=== PATIENT | male | born 1985 | race African-American/Black ===

== ENCOUNTER 2022-12-06 11:12 | Emergency (ER) | payer MEDICAID, SELFPAY ==
--- NOTE | 2022-12-06 11:39 | ED_ITS ---
HPI - Back Pain/Injury General Chief Complaint: Back Pain/Injury Stated Complaint: lumbar back pain x 1 day Time Seen by Provider: 12/06/22 11:25 History of Present Illness HPI Narrative: This is a 37-year-old male who denies past medical history, presenting to the emergency department complaining of back pain. 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 The pain did not radiate and was not associated with any weakness or numbness. He states the pain waxes and wanes, is aggravated by movement and alleviated with rest and heating pads. He has no other complaints today. Related Data Allergies Allergy/AdvReac Type Severity Reaction Status Date / Time No Known Allergies Allergy Verified 12/06/22 11:39 Review of Systems Review of Systems: CONSTITUTIONAL: Denies fever, chills, or sweats. ENT: Denies rhinorrhea, congestion, sore throat, or otalgia. CARDIOVASCULAR: Denies chest pain, palpitations, or edema. RESPIRATORY: Denies cough or dyspnea. GASTROINTESTINAL: Denies abdominal pain, nausea, vomiting, or diarrhea. GENITOURINARY: Denies dysuria or hematuria. SKIN: Denies rash or itching. MUSCULOSKELETAL: Back pain denies joint pain, or myalgia. NEUROLOGIC: Denies headache, numbness, dizziness, or weakness. PSYCHIATRIC: Denies anxiety or depression. Exam Narrative: GENERAL: Well-appearing, well-nourished, and in no acute distress. HEAD: Normocephalic, atraumatic. EYES: PERRLA and EOMI. NECK: Supple. No adenopathy or masses. No carotid bruits or JVD CHEST: Clear to auscultation. No respiratory distress. No wheezes rales or rhonchi HEART: Regular rate and rhythm. No murmur heard. Normal peripheral pulses. ABDOMEN: Soft, nontender, nondistended, normal active bowel sounds. BACK: No midline spine tenderness to palpation, mild spasm noted in the paraspinal musculature at approximately T11-T12 EXTREMITIES: Normal range of motion. No edema. SKIN: Warm, dry, no rash. NEURO: No focal deficits. Alert and oriented x3. PSYCH: Normal mood and affect. Course Course Emergency Course: 11:40 - Exam is not concerning for fracture or mass. Will treat with NSAIDs. Discussed return emergent cautions including signs/symptoms of cauda equina and fracture. Th patient voiced understanding and is comfortable with the plan. All questions answered to his satisfaction. MDM - Back Pain/Injury MDM Narrative Medical decision making narrative: Plan: Pain control, primary care follow-up Differential Diagnosis Differential diagnosis: Likely thoracic back pain and other (Strain of thoracic region, other) Discharge Plan Discharge Clinical Impression: Strain of thoracic spine, Back pain Patient Disposition: Home, Self-Care Condition: Stable Instructions: Antibiotic Form, Acute Low Back Pain (ED), Thoracic Back Strain (ED) Additional Instructions: You were seen in the emergency department. Your exam is consistent with a muscle strain. If you develop weakness/numbness in the legs, loss of sensation in the groin, loss of bowel/bladder control, or have other emergent concerns for life, limb, or eyesight, return to the emergency department. Patient Language: Faroese Follow-up/Referrals: Yamilet Schafer DO [Primary Care Provider] -
[2022-12-06] MEDS: ACETAMINOPHEN 500 MG TABLET 1000 MG PO (11:53)
== END 2022-12-06 12:26 | disposition home or self-care (01) ==
LOC: ANHED 11:43
PROVIDERS: Emergency Provider Preventive Medicine Aerospace Medicine; PCP Family Medicine
DX: S29.012A Strain of muscle and tendon of back wall of thorax, initial encounter (principal); X50.9XXA Other and unspecified overexertion or strenuous movements or postures, initial encounter
CPT/HCPCS: 99282; A9270

== ENCOUNTER → 2022-12-18 11:50 | Outpatient (CLI) | payer MEDICAID, SELFPAY ==
--- NOTE | ~2022-12-18 | XR_ITS ---
EXAMINATION: XR lumbar spine 2-3V DATE: 12/18/2022 12:05 INDICATION: Twisting injury. Low back pain. TECHNIQUE: 3 views of lumbar spine were obtained. COMPARISON: None. FINDINGS: There is 10 degrees dextroscoliosis of lumbar spine. Vertebral body heights and interverteb ral disc heights are normal. The facet joints are normal. IMPRESSION: 1. Lumbar dextroscoliosis. Reviewed, dictated and finalized at location A. [employer]PER[employer] IMPRESSION: 1. Lumbar dextroscoliosis.
== END ==
PROVIDERS: PCP Clinical Nurse Specialist; Visit Provider Clinical Nurse Specialist
DX: M54.50 Low back pain, unspecified (principal); M41.86 Other forms of scoliosis, lumbar region
CPT/HCPCS: 72100

== ENCOUNTER 2022-12-19 12:43 | Outpatient (CLI) | payer MEDICAID, SELFPAY ==
[2022-12-19 19:22] LABS: Basophils Percent Auto 0.5 % (0.2-1.2); Eosinophils Absolute Auto 0.2 K/mm3 (0-0.3); Eosinophils Percent Auto 2.2 % (0-4.4); Hematocrit 47.2 % (42.0-52.0); Hemoglobin 16.3 g/dL (14.0-18.0); Immature Granulocyte Absolute 0.04 K/mm3 (0.00-0.031); Immature Granulocyte Percent A 0.5 % (0-0.5); Lymphocytes Absolute Auto 2.74 K/mm3 (0.9-3.2); Lymphocytes Percent Auto 31.6 % (18.3-44.2); Mean Corpuscular HGB Conc 34.5 g/dl (32-36); Mean Corpuscular Hemoglobin 30.8 pg (26-34); Mean Corpuscular Volume 89.2 fl (80-100); Monocytes Percent Auto 11.1 % (2.6-8.5); Neutrophils Absolute Auto 4.7 K/mm3 (1.3-6.7); Neutrophils Percent Auto 54.1 % (45.5-73.1); Platelet Count Result 225 k/mm3 (150-375); Red Blood Count 5.29 M/mm3 (4.6-6.20); Red Cell Distribution Width 11.2 % (11.5-14.5); White Blood Count 8.7 K/mm3 (4.5-10.0)
[2022-12-19 20:00] LABS: Alanine Aminotransferase 63 U/L (6-50); Albumin Level 4.7 g/dL (3.5-5.1); Alkaline Phosphatase 96 U/L (38-126); Anion Gap 6 mmol/L (8-16); Aspartate Amino Transferase 54 U/L (17-59); Bilirubin,Total 1.1 mg/dL (0.2-1.3); Blood Urea Nitrogen 12 mg/dL (9-20); Calcium 9.5 mg/dL (8.4-10.2); Carbon Dioxide 31 mmol/L (22-30); Chloride 98 mmol/L (98-107); Cholesterol 196 mg/dL (0-200); Estimated Glomerular Filt Rate > 60; Glucose 114 mg/dL (65-110); HDL Direct 34 mg/dL; Sodium 135 mmol/L (137-145); Triglycerides 264 mg/dL (<150)
[2022-12-19 20:10] LABS: LDL Cholesterol Direct 95 mg/dL
[2022-12-20 09:06] LABS: Hemoglobin A1C 5.7 % (<5.7)
== END 2022-12-19 12:44 | disposition home or self-care (01) ==
LOC: ANHGOSHLAB 12:44
PROVIDERS: PCP Clinical Nurse Specialist; Visit Provider Clinical Nurse Specialist
DX: Z13.228 Encounter for screening for other metabolic disorders (principal); Z13.220 Encounter for screening for lipoid disorders; F41.9 Anxiety disorder, unspecified; R73.9 Hyperglycemia, unspecified
CPT/HCPCS: 36415; 80053; 80061; 83036; 84443; 85025

== ENCOUNTER 2023-02-19 14:10 | Outpatient (CLI) | payer OTHER, SELFPAY ==
--- NOTE | ~2023-02-19 | US_ITS ---
EXAMINATION: US soft tissue head and neck DATE: 02/19/2023 14:51 INDICATION: Subcutaneous masses of left cheek. TECHNIQUE: Multiple grayscale and Doppler ultrasound images of the face were obtained. COMPARISON: None FINDINGS: In the left face, there is a 4.1 x 3.2 x 1.4 cm hypoechoic subcutaneous mass that may be in the parotid gland or superficial to the parotid gland. In the left lower face, there is a 2.7 x 1.3 x 2.2 cm hypoechoic subcutaneous mass. In the right lower face, there are 1.2 cm and 0.7 cm and 0.7 c m mixed hypoechoic and hyperechoic subcutaneous masses. IMPRESSION: 1. Multiple masses in the face, most likely benign masses such as sebaceous cysts or peripheral nerve sheath tumors. The differential diagnosis for the mass in the area of the left parotid gland also in cludes benign mixed tumor, Warthin tumor, and less likely primary salivary gland malignancy. Consider neck CT with contrast. Reviewed, dictated and finalized at location A. IMPRESSION: 1. Multiple masses in the face, most likely benign masses such as sebaceous cys ts or peripheral nerve sheath tumors. The differential diagnosis for the mass i n the area of the left parotid gland also includes benign mixed tumor, Warthin tumor, and less likely primary salivary gland malignancy. Consider neck CT with contrast.
== END 2023-02-19 14:11 | disposition home or self-care (01) ==
LOC: ANHIMG 14:14
PROVIDERS: PCP Internal Medicine; Visit Provider Plastic Surgery
DX: R22.0 Localized swelling, mass and lump, head (principal)
CPT/HCPCS: 76536

== ENCOUNTER 2023-02-20 12:30 | Outpatient (RCR) | payer OTHER, SELFPAY ==
--- NOTE | 2022-12-31 17:05 | PTOPEVAL1 ---
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 He states later that night he has such a sharp pain that brought him to his knees. He has not felt the sharp pain since then. Pt states he has been taking extra strength Tylenol and using a heating pad to treat his back pain. He states he has not been sleeping well and tossing and turning is starting to aggravate his neck as well. He states he is limited to about 2-3 hours of standing, for work he needs to stand 5+ hours. Reported Pain Level Pain Score 5: Self Report Assessment PT Clinical Summary Christ Alvarado presents to therapy today for his initial evaluation with a diagnosis of low back pain. Today he demonstrates decreased LE range of motion and strength, both limited by pain . He has decreased active motions in all directions, pain limiting further mobility. He reports muscle tenderness and increased tissue density along his L quadratus lumborum and L lumbar paraspinals. Skilled physical therapy services are indicated for pain management, to increase soft tissue extensibility, to improve LE strength, to improve functional mobility, and to progress towards a return to baseline function. Plan of Care Interventions Electrical Stimulation,Gait Training,Hot Pack/Cold Pack,Manual Therapy,Neuro Re-education,Patient/ Caregiver Educati,Therapeutic Activities, Therapeutic Exercise PT Services Indicated Yes Treatment Frequency and 2x/wk for 3 wks Duration These treatments will address the objective and functional deficits as defined above. The patient will be advanced safely and appropriately in order for the patient to progress towards his/her prior level of function. Additional exercises will be introduced and as well as a comprehensive home exercise program upon discharge, if needed, ?to ensure carryover of functional gains achieved in the clinic. This treatment plan has been reviewed and agreement upon by the patient.
--- NOTE | 2023-01-09 11:23 | PCPTNOTE ---
Pt canelled appt today due a sick child at home.
--- NOTE | 2023-01-13 11:20 | PCPTNOTE ---
pt rescheduled visit due to work conflict and will been seen on Friday afternoon this week.
--- NOTE | 2023-01-21 14:01 | PTOPPROG ---
Assessment and note entered by Gregorio Nicholson, PT, DPT Evaluation Information Assessment Status Progress Diagnosis low back pain - muscle strain Onset 12/05/22 Subjective Information Pt states his back was doing better for a few weeks. He states about a week ago he woke up and his back pain was worse. Not worse than the initial injury but worse than it was. He states he can get through work, it is just painful. He states the pain feels centralized. Assessment PT Clinical Summary Christ presents to therapy today for his progress report following 6 visits of skilled therapy to treat him low back pain. He initially was progressing well with his pain until the past week when he did something to re-exasperate his pain. Continuation of skilled therapy services are indicated to increase soft tissue mobility, decrease pain, improve function, to improve body mechanics and to return to baseline mobility. Plan of Care Interventions Electrical Stimulation,Gait Training,Hot Pack/Cold Pack,Manual Therapy,Neuro Re-education,Patient/ Caregiver Educati,Therapeutic Activities, Therapeutic Exercise PT Services Indicated Yes Treatment Frequency and 2x/wk for 4 wks Duration These treatments will address the objective and functional deficits as defined above. The patient will be advanced safely and appropriately in order for the patient to progress towards his/her prior level of function. Additional exercises will be introduced and as well as a comprehensive home exercise program upon discharge, if needed, ?to ensure carryover of functional gains achieved in the clinic. This treatment plan has been reviewed and agreement upon by the patient.
--- NOTE | 2023-02-20 13:06 | PTOPDC ---
Assessment and note entered by Gregorio Nicholson, PT, DPT Evaluation Information Assessment Status Discharge Diagnosis low back pain - muscle strain Onset 12/05/22 Subjective Information Pt states in the last couple weeks he has not had any back pain. Pt reports 90% improvement in his overall symptoms. Pt reports good compliance with his HEP. He states he has become much more aware of his posture and body mechanics since starting therapy. He states he has not taken any pain medication in the last couple of days either. Reported Pain Level Pain Score 0: Self Report Assessment PT Clinical Summary Christ presents to therapy today for his progress report following 15 visits of skilled therapy to treat his low back pain. Today he reports no pain at rest, and demonstrates no pain with active lumbar motion or passive LE motion. He demonstrates a good understanding of squat mechanics. He has met all of his therapy goals at this time and no longer requires skilled therapy services. He will be discharged now to continue his HEP. Plan of Care Interventions Electrical Stimulation,Gait Training,Hot Pack/Cold Pack,Manual Therapy,Neuro Re-education,Patient/ Caregiver Educati,Therapeutic Activities, Therapeutic Exercise PT Services Indicated No Treatment Frequency and to be discharged Duration
== END 2023-02-20 13:44 | disposition home or self-care (01) ==
LOC: ANHGOSHPT 12:30
PROVIDERS: PCP Clinical Nurse Specialist; Visit Provider Clinical Nurse Specialist
DX: L05.91 Pilonidal cyst without abscess (principal)
CPT/HCPCS: 97014; 97110; 97112; 97140; 97161; 97530; G0283

== ENCOUNTER 2023-03-04 08:41 | Outpatient (CLI) | payer OTHER, SELFPAY ==
--- NOTE | ~2023-03-04 | CT_ITS ---
EXAMINATION: CT soft tissue neck w con DATE: 03/04/2023 09:09 INDICATION: Left neck mass. TECHNIQUE: Computed tomography (CT) of the neck was performed with 75 mL Omnipaque-350 intravenous co ntrast. Automated exposure control and iterative reconstruction technique were employed. The dose-nicole gth product was 651.97 mGy-cm. COMPARISON: Ultrasound 02/19/2023 FINDINGS: There is mild emphysema. There are no pathologically enlarged lymph nodes. There are 2.4 cm and 2.6 cm subcutaneous cystic masses superficial to the left parotid gland. There is an 8 mm subcut aneous mass in left cheek. There is a 9 mm subcutaneous cystic mass superficial to right parotid glan d. There is a 7 mm subcutaneous cystic mass superficial to left mandible. There is a 12 mm subcutaneo us cystic mass in left lutheran. There is a 7 mm subcutaneous cystic mass superficial to right mandible . The teeth demonstrate multiple carious lesions and multiple periapical lucencies. IMPRESSION: 1. Seven subcutaneous masses in the face, most likely sebaceous cysts. 2. Extensive dental disease. 3. Mild emphysema. Reviewed, dictated and finalized at location A.
== END 2023-03-04 08:42 | disposition home or self-care (01) ==
PROVIDERS: PCP Clinical Nurse Specialist; Visit Provider Plastic Surgery
DX: R22.0 Localized swelling, mass and lump, head (principal); R22.1 Localized swelling, mass and lump, neck; J43.9 Emphysema, unspecified; K08.9 Disorder of teeth and supporting structures, unspecified
CPT/HCPCS: 70491; Q9967

== ENCOUNTER 2023-04-09 00:16 | Day surgery (SDC) | payer OTHER, SELFPAY ==
[2023-04-04 08:27] VITALS: BMI 35.2
--- NOTE | 2023-04-04 08:30 | PC.NURSE ---
Report to the Outpatient Waiting Room, entrance under the green pavilion located off [facility], at time 0600 on date 04/09/23. Planned Procedure Time: 0730. Time changes happen often and if your time is changed the preop area will call you the afternoon before. - You and your visitor will be asked to self-screen and do not enter if you have any COVID symptoms. - A mask is optional within the hospital at this time. Patients may have clear liquids (water, carbonated beverages, clear teas, apple juice) until 3 hours prior to surgery with a maximum of 20 ounces. - No food from midnight until time of surgery Take the following medications with a SIP of water the morning of surgery: N/A DO NOT STOP ANY OF YOUR OTHER PRESCRIPTION MEDICATIONS PRIOR TO SURGERY ?EXCEPT THE FOLLOWING Medications to discontinue per physician: N/A Date to take last dose: N/A Please no make-up, nail irish, hairspray, perfume, deodorant, or body powder the day of surgery. No jewelry (including any body piercings) or valuables the day of surgery, leave them at home. Please take a shower or bath the night before, or the morning of, surgery with an antibacterial soap. Wear comfortable, loose fitting clothing. - Jewelry must be removed prior to entering the operating room. Rings and piercings that are not removed may be cut off. - The hospital will not accept responsibility for valuables. - Please leave all valuables, including medications, at home the day of surgery. If you are going home after surgery, a licensed transport driver must drive you home. - NO public transportation without another adult if you receive anesthesia. - We recommend that an adult stay with you for 24 hours following discharge. - We also recommend that you do not drive, make important decision, drink alcoholic beverages, or take any drugs that were not prescribed by your health care provider for at least 24 hours after your discharge time. Follow any additional instructions given to you from your surgeon. If you or anyone in your household have experienced Covid symptoms in the past week, please notify your surgeon or the nurse liaison at the phone number below for possible testing. Telephone instructions given to PT - MANUELA ROBERT and asked if any additional questions and then verbalized understanding. Patient advised to call surgeon office or pre surgery nurse liaison [phone] if any additional questions.
--- NOTE | 2023-04-08 12:05 | P.PNAN_ITS ---
Anes - Initial Pre Proc Eval Procedure: Operation Date: 04/09/23 09:30 Proposed Procedures p Excision Subcutaneous Masses Times Two Left Cheek, Excision Subcutaneous Mass Left Adventism - Dominic De Anda MD Date/Time: 04/08/23 12:05 Surgeon: Dominic De Anda MD Pre Op Diagnosis: SubQ mass x2 Lt Cheek, SubQ Mass Lt Adventism Patient Data Age: 37 Gender: M Height: 1.78 m Weight: 111.15 kg Allergies Allergy/AdvReac Type Severity Reaction Status Date / Time No Known Allergies Allergy Verified 04/04/23 08:26 Home Medications Medication Instructions Recorded Confirmed Type No Home Medications 04/04/23 04/09/23 History Patient hx anesthesia problems: none Family hx anesthesia problems: none Results Review: All pre-operative results and documents have been reviewed as part of the pre- operative evaluation. [facility] Past Medical History Medical History Hospital discharge follow-up Surgical History Surgical History History of surgical removal of pilonidal cyst (~2014) History of surgical removal of pilonidal cyst (~2020) Family History Family History Father Diabetes mellitus Hypertension Mother Hypertension Social History Social History (Updated 01/29/23 @ 13:56 by Zina Dumas CMA) Social History: Caffeine-soda 2 cups daily Years smoked: 18 Smoking status: Current every day smoker Tobacco type: cigarettes Alcohol intake: current Drinks per week: 16 Alcohol use details: 3-4 BEERS EVERY OTHER DAY Substance use: never Substance use type: does not use Lack of Transportation: No Lack of Food: Never True Current Housing: I Have Housing Concerned About Future Housing: No Difficulty Paying Gas/Electric Bills: No Difficulty Paying for Meds: No Currently Unemployed: No Education: High School Diploma/GED Difficulty w/ Childcare or Family Care: No Living arrangements: with family Spiritual care concerns: No Anes - Eval Final PreProcedure Day of Procedure 04/08/23 12:05 Patient weight: obese Heart: regular rate and rhythm Lungs: clear to auscultation Airway: Mallampati scale class II Neurological: alert and oriented Last oral intake: >/= 8 hours ASA classification: III Emergent: no Anesthetic plan: proceed Anesthesia type and monitoring: general LMA and standard monitoring Results Review: All pre-operative results and documents have been reviewed as part of the pre- operative evaluation. Informed Consent: The patient's anesthetic plan and its attendant risks and benefits were discussed with the patient/family/POA. Questions were solicited and answers provided to the satisfaction of the patient/family/POA.
[2023-04-09] VITALS (7 sets, daily range): BP systolic 137–173; BP diastolic 90–106; PULSE 84–115; RESP 13–19; TEMP 36.6–36.7; O2SAT 18–100
--- NOTE | 2023-04-09 07:30 | WPDHPUPDATE1 ---
History and Physical Update Update Date/Time: 04/09/23 07:30 History and Physical has been reviewed, including an updated exam of the patient. There are NO changes in the patient's condition. Risks, benefits, and alternatives have been discussed and questions answered. Patient agrees to proceed with procedure.
--- NOTE | 2023-04-09 07:31 | WPDHPUPDATE1 ---
History and Physical Update Update Date/Time: 04/09/23 07:31 History and Physical has been reviewed, including an updated exam of the patient. There are NO changes in the patient's condition. Risks, benefits, and alternatives have been discussed and questions answered. Patient agrees to proceed with procedure.
[2023-04-09] MEDS: LACTATED RINGERS 1,000 ML 30 ML IV CONT (08:04)
[2023-04-09] MEDS: LIDO 1%/EPINEPHRINE 1:100,000 50 ML VIAL 8 ML INFILTRATE (10:09)
--- NOTE | 2023-04-09 11:38 | P.OP_ITS ---
Procedure Note - Detailed Date of Procedure 04/09/23 Pre-op Diagnosis SubQ mass x2 Lt Cheek, SubQ Mass Lt Hoahaoism Post-op Diagnosis Same Procedure Performed One point 5 cm excision of 1 cm sebaceous cyst left anterior mormonism with intermediate repair 1.5 cm. 2 cm excision 2 cm sebaceous cyst left anterior cheek with intermediate repair 2 cm. 2 cm excision of 3 cm sebaceous cyst left posterior cheek with intermediate repair 2 cm. Surgeon Dominic De Anda MD Anesthesia General Indications Prominent draining masses of the left face Findings Un-inflamed sebaceous cysts in each case Description of Procedure The 3 evident sites on was patient's face were marked his consent holding area. He was then taken to the operating room where he was placed supine operating table. This case was converted to general anesthesia from sedation with patient expressed sense of claustrophobia. The left face was prepped and draped usual fashion. A time-out was held confirmed. The 3 sites were identified and infiltrated locally with 1% lidocaine with epinephrine. The lesion on left mormonism was incised with an ellipse to parallel local skin lines. The cystic sac and contents were removed. No undermining was required. The skin wound was closed with intradermal 4-0 Vicryl approximating the wound margins. At the end of the case the each of these surgical sites was closed with Dermabond. The lesion on the cheek both posteriorly position was incised with an ellipse to parallel the jawline. The cystic sac and contents were removed entirely. The wound was closed with intradermal 4-0 Vicryl suture dermis to approximate the wound margins. Skin wound was again closed with Dermabond. The more anterior mass from left cheek was excised to the lips paralleling local skin lines. The cystic sac and contents were removed. The wound was closed with into dermal 4-0 Vicryl to approximate the wound margins. The skin glued. The patient tolerated the procedure well no additional dressings were applied the patient was discharged home with instructions in wound care follow-up a prescription for hydrocodone 5/325 3. Was sent to his pharmacy. Estimated Blood Loss 5 Drains No Packing No Pathology None sent Complications No immediate complications Condition Stable Disposition PACU
[2023-04-09] MEDS: fentaNYL CITRATE INJ (*CRX) 100 MCG/2 ML VIAL 25 MCG IV PUSH ×2 (11:41→11:58)
[2023-04-09] MEDS: oxyCODONE HCL (*CRX) 5 MG TAB IR PO (12:48)
== END 2023-04-09 13:26 | disposition home or self-care (01) ==
PROVIDERS: PCP Clinical Nurse Specialist; Visit Provider Plastic Surgery
PROC: (CPT 11441; principal; 2023-04-09 09:30)
DX: L72.3 Sebaceous cyst (principal)
CPT/HCPCS: 11441; 11442; 11443; 12053; A9270; J1100; J2250; J2405; J2704; J3010; J7120

== ENCOUNTER 2023-04-30 15:09 | Outpatient (CLI) | payer OTHER, SELFPAY ==
[2023-04-30 19:24] LABS: Basophils Percent Auto 0.5 % (0.2-1.2); Eosinophils Absolute Auto 0.1 K/mm3 (0-0.3); Hematocrit 42.1 % (42.0-52.0); Hemoglobin 14.7 g/dL (14.0-18.0); Immature Granulocyte Absolute 0.06 K/mm3 (0.00-0.031); Immature Granulocyte Percent A 0.7 % (0-0.5); Lymphocytes Absolute Auto 2.39 K/mm3 (0.9-3.2); Lymphocytes Percent Auto 29.5 % (18.3-44.2); Mean Corpuscular HGB Conc 34.9 g/dl (32-36); Mean Corpuscular Hemoglobin 30.5 pg (26-34); Mean Corpuscular Volume 87.3 fl (80-100); Mean Platelet Volume 11.8 fl (7.4-10.4); Monocytes Absolute Auto 0.5 K/mm3 (0.1-0.6); Monocytes Percent Auto 6.2 % (2.6-8.5); Neutrophils Percent Auto 62.1 % (45.5-73.1); Platelet Count Result 359 k/mm3 (150-375); Red Blood Count 4.82 M/mm3 (4.6-6.20); White Blood Count 8.1 K/mm3 (4.5-10.0)
[2023-05-01 01:13] LABS: Alanine Aminotransferase 20 U/L (6-50); Albumin Level 4.1 g/dL (3.5-5.1); Alkaline Phosphatase 142 U/L (38-126); Anion Gap 8 mmol/L (8-16); Aspartate Amino Transferase 22 U/L (17-59); Bilirubin,Total 0.8 mg/dL (0.2-1.3); Blood Urea Nitrogen 9 mg/dL (9-20); Calcium 9.4 mg/dL (8.4-10.2); Carbon Dioxide 27 mmol/L (22-30); Chloride 93 mmol/L (98-107); Estimated Glomerular Filt Rate > 60; Glucose 645 mg/dL (65-110); Potassium 4.2 mmol/L (3.4-5.0); Sodium 128 mmol/L (137-145)
[2023-05-01 10:07] LABS: Iron 75 ug/dL (49-181)
[2023-05-01 10:12] LABS: Percent Iron Saturation 23 % (20-50)
[2023-05-04 04:35] LABS: C-Peptide 1.23 ng/mL (0.80-3.85)
[2023-05-05 18:23] LABS: Glutamic acid decarboxylase AA <5 IU/mL (<5)
[2023-05-15 22:10] LABS: Islet Cell Antibody Screen NEGATIVE (NEGATIVE)
== END 2023-04-30 15:10 | disposition home or self-care (01) ==
LOC: ANHGOSHLAB 15:11
PROVIDERS: PCP Internal Medicine; Visit Provider Clinical Nurse Specialist
DX: E11.65 Type 2 diabetes mellitus with hyperglycemia (principal); R63.4 Abnormal weight loss; F41.9 Anxiety disorder, unspecified; R63.1 Polydipsia
CPT/HCPCS: 36415; 80053; 81256; 82728; 83036; 83540; 83550; 84443; 84681; 85025; 86341

== ENCOUNTER 2023-05-01 13:41 | Outpatient (NON) | payer OTHER, SELFPAY ==
[2023-05-01 17:08] LABS: Appearance Urine Clear (Clear); Bacteria Urine None Seen /hpf; Bilirubin Urine Negative (Negative); Blood Urine Negative (Negative); Color Urine Yellow (Yellow); Glucose Urine UA 3+ mg/dL (Negative); Ketones Urine 3+ mg/dL (Negative); Leukocyte Esterase Ur Negative LEU/UL (Negative); Nitrate Urine Negative (Negative); Non Pathogenic Casts 0-2; Protein Urine Trace mg/dL (Negative); RBC Urine 0-2 /hpf (0-2); Squamous Epithelial Cell Urine None seen /hpf (Few); Urobilinogen Urine 0.2 mg/dL (<2.0); WBC Urine 0-5 /hpf
[2023-05-01 17:09] LABS: Add Urine Microscopic? YES; Specific Grav Ur 1.044 (1.001-1.035)
[2023-05-02 12:27] LABS: Microalbumin Urine Random 44.4 mg/L (0-16.7)
[2023-05-02 12:40] LABS: Creatinine Urine 76.5 mg/dL
== END 2023-05-01 13:42 | disposition home or self-care (01) ==
LOC: ANHGOSHLAB 13:42
PROVIDERS: PCP Internal Medicine; Visit Provider Clinical Nurse Specialist
DX: E11.9 Type 2 diabetes mellitus without complications (principal)
CPT/HCPCS: 81001; 82043

== ENCOUNTER 2023-05-26 13:40 | Outpatient (CLI) | payer OTHER, SELFPAY ==
[2023-05-26 19:56] LABS: Anion Gap 8 mmol/L (8-16); Blood Urea Nitrogen 8 mg/dL (9-20); Calcium 9.2 mg/dL (8.4-10.2); Carbon Dioxide 29 mmol/L (22-30); Chloride 102 mmol/L (98-107); Estimated Glomerular Filt Rate > 60; Glucose 95 mg/dL (65-110); Potassium 3.7 mmol/L (3.4-5.0); Sodium 139 mmol/L (137-145)
== END 2023-05-26 13:41 | disposition home or self-care (01) ==
LOC: ANHGOSHLAB 13:41
PROVIDERS: PCP Internal Medicine; Visit Provider Clinical Nurse Specialist
DX: E87.1 Hypo-osmolality and hyponatremia (principal)
CPT/HCPCS: 36415; 80048

== ENCOUNTER 2023-07-01 09:30 | Outpatient (RCR) | payer OTHER, SELFPAY | END 2023-08-04 10:05 | disposition home or self-care (01) | LOC: ANHDMC 09:30 | PROVIDERS: PCP Internal Medicine; Visit Provider Clinical Nurse Specialist | DX: E11.9 Type 2 diabetes mellitus without complications (principal); Z71.89 Other specified counseling | CPT/HCPCS: G0108 ==

== ENCOUNTER 2024-05-15 22:56 | Observation (INO) | payer OTHER, SELFPAY ==
--- NOTE | ~2024-05-15 | US_ITS ---
EXAMINATION: US abdomen limited DATE: 05/17/2024 11:14 INDICATION: Hyperbilirubinemia. TECHNIQUE: Multiple grayscale and Doppler ultrasound images of the abdomen were obtained. COMPARISON: None FINDINGS: The visualized portions of the head and body of the pancreas are normal. The liver is maegan l without focal lesion. There is normal flow in main portal vein. The gallbladder is normal in size. No gallstones or gallbladder wall thickening. There is no sonographic Hoang's sign. The common duct is normal and measures 1 mm. Right kidney is normal. IMPRESSION: 1. Normal right upper quadrant ultrasound. Reviewed, dictated and finalized at location A.
--- NOTE | ~2024-05-15 | XR_ITS ---
EXAMINATION: XR chest 1V portable DATE: 05/16/2024 00:37 INDICATION: Cough TECHNIQUE: frontal view of the chest was obtained. COMPARISON: None FINDINGS: Subtle patchy groundglass opacity in the bilateral lower lungs. No pleural effusion or pneumothorax. The cardiomediastinal silhouette is normal. IMPRESSION: 1. Subtle patchy groundglass opacity in the bilateral lower lungs which could represent pneumonia or atelectasis. Reviewed, dictated and finalized at location A. IMPRESSION: 1. Subtle patchy groundglass opacity in the bilateral lower lungs which could r epresent pneumonia or atelectasis.
--- NOTE | 2024-05-15 23:02 | ECG_ITS ---
Test Date: 2024-05-15 23:33:46 Measurements Intervals Nunez Rate: 104 P: 51 ID: 125 QRS: 60 QRSD: 85 T: 40 QT: 320 QTc: 423 Interpretive Statements SINUS TACHYCARDIA OTHERWISE NORMAL ELECTROCARDIOGRAM No previous ECG available for comparison Electronically Signed On 05-16-2024 08:42:13 CDT by Hi Yen M.D.
--- NOTE | 2024-05-15 23:42 | ED.GENADULT ---
HPI - General Adult General Chief complaint: Recheck/Abnormal Lab/Rx <Donell Fritz PA-C - Last Filed: 05/16/24 02:01> Stated complaint: hyperglycemia, muscle weakness <Donell Fritz PA-C - Last Filed: 05/16/24 02:01> Time Seen by Provider: 05/15/24 23:32 <Donell Fritz PA-C - Last Filed: 05/16/24 02:01> Source: patient <BRAYAN Davies Last Filed: 05/16/24 02:01> Mode of arrival: ambulatory <BRAYAN Davies Last Filed: 05/16/24 02:01> Limitations: no limitations <Donell Fritz PA-C - Last Filed: 05/16/24 02:01> History of Present Illness HPI narrative: This is a 38-year-old male with PMH of diabetes type 2 who presents to the ED with chief complaint of general fatigue, weakness for the past 3 weeks. Patient reports that he has been taking Jardiance and right Cheney's this for his diabetes but has not been taking metformin for the past several months. Reports he started checking sugars over the past couple weeks and noticed that they have been as high as 400s. Endorses occasional cough but does use tobacco. Endorses polydipsia, polyuria. denies dysuria, hematuria, abdominal pain, nausea, vomiting, fevers, chills, numbness, weakness, headache, neck pain or back pain. <Donell Fritz PA-C - Last Filed: 05/16/24 02:01> Related Data Allergies/adverse reactions: Allergies Allergy/AdvReac Type Severity Reaction Status Date / Time No Known Allergies Allergy Verified 05/15/24 22:57 <Donell Fritz PA-C - Last Filed: 05/16/24 02:01> Review of Systems Review of Systems: All systems as dictated in HPI <Donell Fritz PA-C - Last Filed: 05/16/24 02:01> [facility] Past Medical History Medical History: Medical History Anxiety Eczema Encounter to establish care Epidermoid cyst of face Erectile dysfunction Excessive thirst Hospital discharge follow-up Hyperglycemia Hyponatremia New onset type 2 diabetes mellitus Screening for lipoid disorders Screening for metabolic disorder Unexplained weight loss <Donell Fritz PA-C - Last Filed: 05/16/24 02:01> Surgical History Surgical History: Surgical History History of surgical removal of pilonidal cyst (~2014) 04/09/2023 - 3 removed History of surgical removal of pilonidal cyst (~2020) <Donell Fritz PA-C - Last Filed: 05/16/24 02:01> Family History Family History: Family History Father Diabetes mellitus Hypertension Mother Hypertension <Donell Fritz PA-C - Last Filed: 05/16/24 02:01> Social History Social History: Social History Social History: Caffeine-soda 2 cups daily Smoking packs per day: 0.20 Smoking cigarettes per day: 4.0 Years smoked: 18 Smoking pack-years: 3.60 Smoking status: Current every day smoker Tobacco type: cigarettes Alcohol intake: former Alcohol use details: Quit 02/2023 Substance use: never Substance use type: does not use Lack of Transportation: No Lack of Food: Never True Current Housing: I Have Housing Concerned About Future Housing: No Difficulty Paying Gas/Electric Bills: No Difficulty Paying for Meds: No Currently Unemployed: No Education: High School Diploma/GED Difficulty w/ Childcare or Family Care: No Living arrangements: with family Spiritual care concerns: No <Donell Fritz PA-C - Last Filed: 05/16/24 02:01> Exam Narrative: GENERAL: Well-appearing, well-nourished, and in no acute distress. HEAD: Normocephalic, atraumatic. EYES: PERRLA and EOMI. ENT: Nares clear, no rhinorrhea or epistaxis. Mucous membranes moist. Oropharynx without tonsillar hypertrophy exudate or other lesions. NECK: Supple. No adenopathy or masses. CHEST: No respiratory distress. Clear to
[2024-05-15 23:55] VITALS: BP 140/100; PULSE 104; RESP 15; TEMP 37.2; O2SAT 99
[2024-05-16] VITALS (14 sets, daily range): BP systolic 110–137; BP diastolic 68–92; PULSE 74–96; RESP 14–16; TEMP 36.4–36.9; O2SAT 98–100; BMI 29.2
[2024-05-16] MEDS: SODIUM CHLORIDE 0.9% IV 1,000 ML 999 ML IV CONT ×3 (00:09→01:08)
[2024-05-16 00:19] LABS: Basophils Absolute Auto 0.1 K/mm3 (0.0-0.1); Basophils Percent Auto 0.4 % (0.2-1.2); Eosinophils Absolute Auto 0.1 K/mm3 (0-0.3); Eosinophils Percent Auto 0.7 % (0-4.4); Hematocrit 46.3 % (42.0-52.0); Hemoglobin 16.7 g/dL (14.0-18.0); Immature Granulocyte Percent A 2.9 % (0-0.5); Lymphocytes Percent Auto 26.4 % (18.3-44.2); Mean Corpuscular HGB Conc 36.1 g/dl (32-36); Mean Corpuscular Hemoglobin 31.3 pg (26-34); Mean Corpuscular Volume 86.9 fl (80-100); Mean Platelet Volume 11.8 fl (7.4-10.4); Monocytes Absolute Auto 0.9 K/mm3 (0.1-0.6); Monocytes Percent Auto 6.2 % (2.6-8.5); Neutrophils Absolute Auto 8.7 K/mm3 (1.3-6.7); Neutrophils Percent Auto 63.4 % (45.5-73.1); Platelet Count Result 396 k/mm3 (150-375); Red Blood Count 5.33 M/mm3 (4.6-6.20); Red Cell Distribution Width 11.4 % (11.5-14.5); White Blood Count 13.7 K/mm3 (4.5-10.0)
[2024-05-16 00:28] LABS: Alanine Aminotransferase 13 U/L (6-50); Albumin Level 5.1 g/dL (3.5-5.1); Alkaline Phosphatase 127 U/L (38-126); Anion Gap 24 mmol/L (4-12); Aspartate Amino Transferase 15 U/L (17-59); Bilirubin,Total 2.4 mg/dL (0.2-1.3); Blood Urea Nitrogen 19 mg/dL (9-20); Calcium 10.3 mg/dL (8.4-10.2); Carbon Dioxide 14 mmol/L (22-30); Chloride 96 mmol/L (98-107); Estimated CRCL calculation 92 ml/min; Estimated Glomerular Filt Rate > 60; Glucose 320 mg/dL (65-110); Potassium 4.5 mmol/L (3.4-5.0); Sodium 134 mmol/L (137-145)
[2024-05-16 00:29] LABS: Lactic Acid Reflex 1.4 mmol/L (0.7-2.0)
[2024-05-16 00:32] LABS: Hemoglobin A1C 13.8 % (<5.7)
[2024-05-16 00:50] LABS: Appearance Urine Clear (Clear); Bilirubin Urine Negative (Negative); Blood Urine Negative (Negative); Color Urine Yellow (Yellow); Glucose Urine UA 3+ mg/dL (Negative); Ketones Urine 4+ mg/dL (Negative); Leukocyte Esterase Ur Negative LEU/UL (Negative); Nitrate Urine Negative (Negative); Protein Urine Negative (Negative); Urobilinogen Urine 0.2 mg/dL (<2.0)
[2024-05-16 00:55] LABS: Add Urine Microscopic? NO
[2024-05-16 01:39] LABS: Beta-Hydroxybutyrate/Acetoacetate 9.06 mmol/L (0.02-0.27)
[2024-05-16 02:07] LABS: Anion Gap 27 mmol/L (4-12); Blood Urea Nitrogen 19 mg/dL (9-20); Calcium 10.4 mg/dL (8.4-10.2); Carbon Dioxide 11 mmol/L (22-30); Chloride 97 mmol/L (98-107); Estimated CRCL calculation 92 ml/min; Estimated Glomerular Filt Rate > 60; Glucose 321 mg/dL (65-110); Potassium 4.5 mmol/L (3.4-5.0); Sodium 135 mmol/L (137-145)
[2024-05-16] MEDS: LACTATED RINGERS 1,000 ML 150 ML IV CONT (02:15)
[2024-05-16 02:59] LABS: Anion Gap 18 mmol/L (4-12); Blood Urea Nitrogen 16 mg/dL (9-20); Calcium 8.9 mg/dL (8.4-10.2); Carbon Dioxide 13 mmol/L (22-30); Chloride 105 mmol/L (98-107); Estimated CRCL calculation 102 ml/min; Estimated Glomerular Filt Rate > 60; Glucose 217 mg/dL (65-110); Potassium 4.5 mmol/L (3.4-5.0); Sodium 136 mmol/L (137-145)
[2024-05-16 03:23] LABS: Glucose Point of Care 224 mg/dl (65-105)
[2024-05-16] MEDS: INSULIN HUMAN REGULAR (*BKC) 100 UNITS in SODIUM CHLORIDE 0.9% IV 99 ML 9 UNITS IV CONT (03:28)
[2024-05-16] MEDS: SODIUM CHLORIDE 0.9% IV 1,000 ML 150 ML IV CONT (03:28)
[2024-05-16] MEDS: KCL 20 MEQ/D5/0.45% SOD CHL 1,000 ML 150 ML IV CONT (03:55)
[2024-05-16 03:57] LABS: Glucose Point of Care 220 mg/dl (65-105)
[2024-05-16 04:14] LABS: Magnesium 1.8 mg/dL (1.6-2.3); Phosphorus 4.3 mg/dL (2.5-4.5)
--- NOTE | 2024-05-16 04:41 | PM.IMHP ---
H&P: HPI History of Present Illness Date/Time: 05/16/24 04:41 Chief Complaint: High blood sugar, weakness Narrative: 38-year-old male with a past medical history of type 2 diabetes mellitus who has been noncompliant with medications who presented with to the ER with weakness fatigue and lethargy for 3 weeks. Patient was initially diagnosed with diabetes approximately March 2023. He was started on therapy with Lantus and metformin. His A1c is Endocrinology follow-up in July 2023 was 5.1 and his Lantus was discontinued and he was switched to Rybelsus and Jardiance. On review external medication reconciliation appears patient has not had these medications filled since November. His reports that patient was feeling well and quit taking his medications. He stopped checking his blood glucoses. Two or 3 days ago he got a continuous glucose monitor and noticed that his sugars were in the 400s and 500s. The triage note states the patient was not having difficulty managing his glucoses but instead the patient just was not checking his glucose is and not taking his medications. Over the last 3 weeks the patient has become so lethargic that his states he does not get up and is sleeping all day. He reports that he is drinking water nonstop. He is urinating every 15-20 minutes. He denies any dysuria. Denies any hematuria. His reports that he has lost at least 20 lb over the last month. He did have 1 episode of emesis yesterday. He denies any chest pain but reports that he feels short of breath. However a sensation of shortness of breath has improved with IV fluids and insulin. He denies any symptoms of neuropathy. His reports that he has been having some dry cough for 2-3 weeks. He denies any ill contacts. He denies having any fevers but his thinks that the patient has been having fevers but they did not check it with a thermometer. The patient does smoke but over the last couple of weeks due to his illness has cut back to only a couple of cigarettes a day and he has felt so bad over the last couple of days that he has not smoked at all. Review of Systems Review of Systems: 12 systems were reviewed with pertinent positives and negatives per HPI. Except as documented in the HPI, all other systems were reviewed and are negative. [facility] Past Medical History Medical History (Updated 05/16/24 @ 07:38 by Laxmi Lassiter DO) Anxiety Eczema Epidermoid cyst of face Erectile dysfunction Hyperlipidemia Insomnia New onset type 2 diabetes mellitus Tobacco abuse Surgical History Surgical History (Updated 05/16/24 @ 07:29 by Laxmi Lassiter DO) H/O excision of epidermal inclusion cyst (03/2023) Left forehead, left anterior cheek, left posterior cheek History of surgical removal of pilonidal cyst (~2014) 04/09/2023 - 3 removed History of surgical removal of pilonidal cyst (~2020) Family History Family History Father Diabetes mellitus Hypertension Mother Hypertension Social History Social History (Updated 05/16/24 @ 07:32 by Laxmi Lassiter DO) Social History: The patient and his have been together for 10 years and they have been since 2019. They have do 3 children ages [id number] and 4 (as of documentation April 2024). 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 The patient denies any history of significant alcohol use. He does smoke up to half a pack of cigarettes per day but in recent months is cut down to 2 or 3 cigarettes a day. He started smoking in his late teens. He denies illicit substance use. Code status: Full code Surrogate decision maker: Kaylene Lane () Smoking packs per day: 0.5 Smoking cigarettes per day: 10.0 Years smoked: 18 Smoking pack-years: 9.00 Smoking status: Current every day smoker Tobacco type: cigarettes Alcohol int
[2024-05-16 04:57] LABS: Glucose Point of Care 139 mg/dl (65-105)
[2024-05-16 05:56] LABS: Glucose Point of Care 141 mg/dl (65-105)
[2024-05-16 06:28] LABS: MRSA (PCR) NOT DETECTED (NOT DETECTE)
--- NOTE | 2024-05-16 06:29 | ADMGEN ---
This patient, Christ Polo, was admitted to Intensive Care Unit-3 AT 0348. Patient/family oriented to hospital policies and general routines including ID bracelet, bed and alarms, visiting hours, pain management, procedures, bathroom and other care routines, personal items, smoking policy, room service/diet, and visiting hours. Information on how to activate the Rapid Response Team has been discussed. Patient/Family are encouraged to report perceived risks to care and to ask questions if they do not understand what they are told or what they should do.
[2024-05-16 07:04] LABS: Glucose Point of Care 182 mg/dl (65-105)
[2024-05-16 07:44] LABS: Hematocrit 38.3 % (42.0-52.0); Hemoglobin 13.5 g/dL (14.0-18.0); Mean Corpuscular HGB Conc 35.2 g/dl (32-36); Mean Corpuscular Hemoglobin 31.4 pg (26-34); Mean Corpuscular Volume 89.1 fl (80-100); Mean Platelet Volume 11.8 fl (7.4-10.4); Platelet Count Result 297 k/mm3 (150-375); Red Cell Distribution Width 11.7 % (11.5-14.5)
[2024-05-16 07:52] LABS: Anion Gap 16 mmol/L (4-12); Blood Urea Nitrogen 14 mg/dL (9-20); Calcium 9.1 mg/dL (8.4-10.2); Carbon Dioxide 14 mmol/L (22-30); Chloride 106 mmol/L (98-107); Estimated CRCL calculation 114 ml/min; Estimated Glomerular Filt Rate > 60; Glucose 178 mg/dL (65-110); Potassium 4.3 mmol/L (3.4-5.0); Sodium 136 mmol/L (137-145)
[2024-05-16 08:04] LABS: Troponin I < 0.012 ng/mL (0.000-0.034)
[2024-05-16 08:09] LABS: Glucose Point of Care 182 mg/dl (65-105)
[2024-05-16] MEDS: ROSUVASTATIN 10 MG TABLET PO (08:16)
[2024-05-16] MEDS: ENOXAPARIN 40 MG/0.4 ML SYRINGE SUB-Q (08:16)
[2024-05-16] MEDS: lisinopriL 5 MG TABLET PO (08:16)
--- NOTE | 2024-05-16 08:19 | WPDCNINT ---
Assessment and Plan Assessment and plan (1) DKA, type 2, not at goal: Code(s): E11.10 - Type 2 diabetes mellitus with ketoacidosis without coma Status: Acute Assessment and Plan: Patient reviewed with DKA secondary to noncompliance with medications. Patient received IVF bolus and currently on infusion Continue Insulin infusion and Q1H glucose monitoring Continue Serial labs Replace electrolytes as needed Will transition to SC insulin once AG is closed Since patient is now asymptomatic will resume diet (2) Hyperlipidemia: Code(s): E78.5 - Hyperlipidemia, unspecified Status: Acute Assessment and Plan: Continue atorvastatin (3) Tobacco abuse: Code(s): Z72.0 - Tobacco use Status: Acute Assessment and Plan: Patient was counseled and encouraged to quit smoking (4) Noncompliance with medication regimen: Code(s): Z91.148 - Patient's other noncompliance with medication regimen for other reason Status: Acute Assessment and Plan: Patient was encouraged to remain compliant with medication and did not discontinue treatment without discussing with his physician (5) Type 2 diabetes mellitus: Qualifiers: Diabetes mellitus complication status: with hyperglycemia Diabetes mellitus longterm insulin use: with intermediate project manager use Qualified Code(s): E11.65 - Type 2 diabetes mellitus with hyperglycemia; Z79.4 - [facility] (current) use of insulin Code(s): E11.9 - Type 2 diabetes mellitus without complications Status: Acute Assessment and Plan: See above Plan DVT prophylaxis -SCDs while in bed, Lovenox subQ Stress ulcer prophylaxis - Nutrition -start diabetic diet Code Status - Full Code Conveyor Operator Consult Note Consult date: 05/16/24 Reason for consult: DKA HPI: Christ Polo is a 38 year old male with a past medical history of type 2 diabetes mellitus who has been noncompliant with medications presented to the ER with chief complaint of weakness fatigue and lethargy for 3 weeks. Patient was initially diagnosed with diabetes approximately March 2023. He was started on therapy with Lantus and metformin. His A1c is Endocrinology follow-up in July 2023 was 5.1 and his Lantus was discontinued and he was switched to Rybelsus and Jardiance along with metformin. Patient felt better and did not think he needed this medication then quit taking his medications in November of this year. He also stopped checking his blood glucoses. Two or 3 days ago he got a continuous glucose monitor and noticed that his sugars were in the 400s and 500s. Over the last 3 weeks the patient has become so weak that his states he does not get up and is sleeping all day. He reports that he is drinking water nonstop. He was urinating every 15-20 minutes. He denies any dysuria or hematuria. Patient reports that he has lost at least 20 lb over the last month. He did have 1 episode of emesis yesterday but no abdominal pain. Patient denies fever, chest pain, shortness of breath, cough, diarrhea, headache or constipation. All other systems were reviewed and were negative Workup in the ER showed patient to be in DKA and was started on IV fluids and IV insulin infusion admitted to ICU for further evaluation. This morning he states he is feeling better and his symptoms have resolved and he would like to eat food. Review of Systems Review of Systems: All systems reviewed & are unremarkable except as noted in HPI and below (HPI) PMFSH Past Medical History Medical History Anxiety Eczema Epidermoid cyst of face Erectile dysfunction Hyperlipidemia Insomnia New onset type 2 diabetes mellitus Tobacco abuse Surgical History Surgical History H/O excision of epidermal inclusion cyst (03/2023) Left forehead, left anterior cheek, left posterior cheek Hist
[2024-05-16 09:06] LABS: Glucose Point of Care 343 mg/dl (65-105)
[2024-05-16 10:09] LABS: Glucose Point of Care 364 mg/dl (65-105)
[2024-05-16] MEDS: KCL 20 MEQ/D5/0.45% SOD CHL 1,000 ML 200 ML IV CONT (10:14)
[2024-05-16 11:09] LABS: Glucose Point of Care 293 mg/dl (65-105)
[2024-05-16 11:25] LABS: Anion Gap 12 mmol/L (4-12); Blood Urea Nitrogen 13 mg/dL (9-20); Calcium 8.6 mg/dL (8.4-10.2); Carbon Dioxide 15 mmol/L (22-30); Chloride 106 mmol/L (98-107); Estimated CRCL calculation 129 ml/min; Estimated Glomerular Filt Rate > 60; Glucose 283 mg/dL (65-110); Potassium 4.1 mmol/L (3.4-5.0); Sodium 133 mmol/L (137-145)
[2024-05-16] MEDS: INSULIN GLARGINE (*BKC) 100 UNITS/ML 20 UNITS SUB-Q (11:41)
[2024-05-16] MEDS: INSULIN ASPART (*BKC) 100 UNITS/ML SUB-Q ×3 (12:02→20:17)
[2024-05-16 12:08] LABS: Glucose Point of Care 227 mg/dl (65-105)
[2024-05-16 13:04] LABS: Glucose Point of Care 255 mg/dl (65-105)
--- NOTE | 2024-05-16 15:49 | PC.NURSE ---
This patient, Christ Polo, was transferred to [facility] on 05/16/24 at 1514. Personal belongings sent with patient. Report given to [facility]. Appropriate documentation sent with patient.
--- NOTE | 2024-05-16 16:28 | PM.IMPN ---
Progress Note: A&P Assessment and Plan (1) DKA, type 2, not at goal: Code(s): E11.10 - Type 2 diabetes mellitus with ketoacidosis without coma Status: Acute (2) Noncompliance with medication regimen: Code(s): Z91.148 - Patient's other noncompliance with medication regimen for other reason Status: Acute (3) Tobacco abuse: Code(s): Z72.0 - Tobacco use Status: Acute (4) Hyperlipidemia: Code(s): E78.5 - Hyperlipidemia, unspecified Status: Acute Plan DKA with insulin dependent diabetes Upon arrival, patient was found have uncontrolled glucose, high anion gap metabolic acidosis, positive ketones secondary to noncompliance with medications. Patient received IVF bolus and currently on infusion Received Insulin infusion and Q1H glucose monitoring Continue Serial labs Replace electrolytes as needed Current anion gap is closed, transit to subQ insulin Resume a diabetic diet Hyperlipidemia: Code(s): E78.5 - Hyperlipidemia, unspecified Status: Acute Assessment and Plan: Continue atorvastatin Tobacco abuse: Code(s): Z72.0 - Tobacco use Status: Acute Assessment and Plan: Patient was counseled and encouraged to quit smoking Noncompliance with medication regimen: Code(s): Z91.148 - Patient's other noncompliance with medication regimen for other reason Status: Acute Assessment and Plan: Patient was encouraged to remain compliant with medication and did not discontinue treatment without discussing with his physician Type 2 diabetes mellitus: Qualifiers: Diabetes mellitus complication status: with hyperglycemia Diabetes mellitus usp insulin use: with usp use Qualified Code(s): E11.65 - Type 2 diabetes mellitus with hyperglycemia; Z79.4 - [facility] (current) use of insulin Code(s): E11.9 - Type 2 diabetes mellitus without complications Status: Acute Assessment and Plan: Advised patient follow-up with the medication administration professional, patient may benefit from insulin pump infusion Subjective Date/time seen: 05/16/24 16:28 Interval history: I saw exam patient today in ICU, patient feels better, denies abdomen pain, nausea vomiting. Afebrile, blood pressure stable, labs reviewed, gap closed, Exam Narrative: GENERAL: Pleasant, in no acute distress. Well-nourished. - EYES: EOMI. Anicteric. - HENT: Moist mucous membranes. - LUNGS: Clear to auscultation bilaterally, no wheezing, rhonchi, or rales. - CARDIOVASCULAR: Regular rate and rhythm. No murmur. No JVD. - ABDOMEN: Soft, non-tender and non-distended. No palpable masses. - EXTREMITIES: No edema. Peripheral pulses 2+. Non-tender. - NEUROLOGIC: No focal neurological deficits. CN II-XII grossly intact. - PSYCHIATRIC: Awake, Alert and oriented x 3. Appropriate mood and affect. - SKIN: No rashes or lesions. Warm. - LYMPH: No cervical lymphadenopathy. Objective Data Vital Signs Vital Signs: Vital Signs - 24 hr 05/15/24 23:55 05/16/24 00:00 05/16/24 00:34 Temperature 98.9 F Pulse Rate 104 H 96 Respiratory Rate 15 14 16 Blood Pressure 140/100 H 137/92 H Pulse Oximetry 99 99 Oxygen Delivery Room Air 05/16/24 02:06 05/16/24 03:15 05/16/24 04:00 Temperature Pulse Rate 84 84 Respiratory Rate 16 16 Blood Pressure 136/80 129/79 Pulse Oximetry 98 100 99 Oxygen Delivery Room Air 05/16/24 04:05 05/16/24 04:05 05/16/24 06:00 Temperature 98.3 F Pulse Rate 74 74 76 Respiratory Rate 16 Blood Pressure 119/70 Pulse Oximetry 98 Oxygen Delivery 05/16/24 06:00 05/16/24 08:00 05/16/24 08:00 Temperature 98.4 F Pulse Rate 77 75 Respiratory Rate 16 15 Blood Pressure 119/69 119/68 Pulse Oximetry 99 99 99 Oxygen Delivery Room Air 05/16/24 08:00 05/16/24 10:00 05/16/24 10:00 Temperature Pulse Rate 77 89 89 Respiratory Rate 16 Blood Pressure 113/68 Pulse Oximetry 98 Oxyg
[2024-05-16] MEDS: metFORMIN HCL 500 MG TABLET PO (17:24)
[2024-05-16 17:32] LABS: Glucose Point of Care 265 mg/dl (65-105)
--- NOTE | 2024-05-16 20:24 | PC.NURSE ---
Difference noted between hospital glucometer and patient monitor: hospital glucose 324; patient rebecca monitor [id number] within minutes of bedside glucose check.
[2024-05-16 20:26] LABS: Glucose Point of Care 324 mg/dl (65-105)
[2024-05-17] VITALS (10 sets, daily range): BP systolic 121–136; BP diastolic 63–73; PULSE 78–98; RESP 16–18; TEMP 36.2–37.1; O2SAT 98–100; BMI 28.8
[2024-05-17 05:00] LABS: Hematocrit 36.9 % (42.0-52.0); Hemoglobin 12.5 g/dL (14.0-18.0); Mean Corpuscular HGB Conc 33.9 g/dl (32-36); Mean Corpuscular Hemoglobin 31.3 pg (26-34); Mean Corpuscular Volume 92.3 fl (80-100); Mean Platelet Volume 11.4 fl (7.4-10.4); Platelet Count Result 305 k/mm3 (150-375); Red Cell Distribution Width 11.6 % (11.5-14.5); White Blood Count 11.3 K/mm3 (4.5-10.0)
[2024-05-17 05:14] LABS: Alanine Aminotransferase 10 U/L (6-50); Albumin Level 3.9 g/dL (3.5-5.1); Alkaline Phosphatase 89 U/L (38-126); Anion Gap 16 mmol/L (4-12); Aspartate Amino Transferase 16 U/L (17-59); Bilirubin,Total 3.1 mg/dL (0.2-1.3); Blood Urea Nitrogen 13 mg/dL (9-20); Carbon Dioxide 15 mmol/L (22-30); Chloride 104 mmol/L (98-107); Estimated CRCL calculation 129 ml/min; Estimated Glomerular Filt Rate > 60; Glucose 192 mg/dL (65-110); Magnesium 1.9 mg/dL (1.6-2.3); Potassium 4.1 mmol/L (3.4-5.0); Sodium 135 mmol/L (137-145)
--- NOTE | 2024-05-17 07:35 | PM.IMPN ---
Progress Note: A&P Assessment and Plan (1) DKA, type 2, not at goal: Code(s): E11.10 - Type 2 diabetes mellitus with ketoacidosis without coma Status: Acute (2) Noncompliance with medication regimen: Code(s): Z91.148 - Patient's other noncompliance with medication regimen for other reason Status: Acute (3) Tobacco abuse: Code(s): Z72.0 - Tobacco use Status: Acute (4) Hyperlipidemia: Code(s): E78.5 - Hyperlipidemia, unspecified Status: Acute Plan DKA with insulin dependent diabetes Upon arrival, patient was found have uncontrolled glucose, high anion gap metabolic acidosis, positive ketones secondary to noncompliance with medications. Patient received IVF bolus and currently on infusion Received Insulin infusion and Q1H glucose monitoring Continue Serial labs Replace electrolytes as needed Current anion gap is closed, transit to subQ insulin Resume a diabetic diet 05/17: Bicarbonate 15, anion gap 16, follow-up ABG: PH 7.306, patient still has DKA most likely Patient is on Lantus 20 unit, add lispro 6 unit a.c., continue sliding scale, start normal saline IV 150 mL/hour, follow-up BMP q6h Elevated total bili Total bilirubin 3.1, trending up, liver enzymes normal Follow-up abdomen US Hyperlipidemia: Code(s): E78.5 - Hyperlipidemia, unspecified Status: Acute Assessment and Plan: Continue atorvastatin Tobacco abuse: Code(s): Z72.0 - Tobacco use Status: Acute Assessment and Plan: Patient was counseled and encouraged to quit smoking Noncompliance with medication regimen: Code(s): Z91.148 - Patient's other noncompliance with medication regimen for other reason Status: Acute Assessment and Plan: Patient was encouraged to remain compliant with medication and did not discontinue treatment without discussing with his physician Type 2 diabetes mellitus: Qualifiers: Diabetes mellitus complication status: with hyperglycemia Diabetes mellitus custodial insulin use: with custodial use Qualified Code(s): E11.65 - Type 2 diabetes mellitus with hyperglycemia; Z79.4 - [facility] (current) use of insulin Code(s): E11.9 - Type 2 diabetes mellitus without complications Status: Acute Assessment and Plan: Advised patient follow-up with the pc tech, patient may benefit from insulin pump infusion Subjective Date/time seen: 05/17/24 07:35 Interval history: Patient is afebrile, blood pressure stable, labs reviewed, bicarbonate 15, anion gap 16, glucose not well control, ABG is 7.36. Patient denies abdomen pain, nausea vomiting diarrhea. Patient afebrile, blood pressure is Exam Narrative: GENERAL: Pleasant, in no acute distress. Well-nourished. - EYES: EOMI. Anicteric. - HENT: Moist mucous membranes. - LUNGS: Clear to auscultation bilaterally, no wheezing, rhonchi, or rales. - CARDIOVASCULAR: Regular rate and rhythm. No murmur. No JVD. - ABDOMEN: Soft, non-tender and non-distended. No palpable masses. - EXTREMITIES: No edema. Peripheral pulses 2+. Non-tender. - NEUROLOGIC: No focal neurological deficits. CN II-XII grossly intact. - PSYCHIATRIC: Awake, Alert and oriented x 3. Appropriate mood and affect. - SKIN: No rashes or lesions. Warm. - LYMPH: No cervical lymphadenopathy. Objective Data Vital Signs Vital Signs: Vital Signs - 24 hr 05/16/24 08:00 05/16/24 08:00 05/16/24 08:00 Temperature 98.4 F Pulse Rate 75 77 Respiratory Rate 15 Blood Pressure 119/68 Pulse Oximetry 99 99 Oxygen Delivery Room Air 05/16/24 10:00 05/16/24 10:00 05/16/24 10:13 Temperature Pulse Rate 89 89 Respiratory Rate 16 Blood Pressure 113/68 Pulse Oximetry 98 98 Oxygen Delivery Room Air 05/16/24 12:00 05/16/24 12:00 05/16/24 12:00 Temperature 98.1 F Pulse Rate 84 91 Respiratory Rate 15 Blood Pressure 110/69 Pulse Oximetry 99 Oxygen Deliver
[2024-05-17 07:55] LABS: Alveolar/Arterial O2 Gradient 16.5 mmHg; Base Excess ABG -9.6 mEq/l (+/-2.0); Fractional Inspired Oxygen 21 %; HCO3 ABG 15.6 mEq/l (22.0-26.0); Oxygen Content ABG 17.5 %vol (16.0-22.0); Oxygen Saturation ABG 96.7 % (95.0-100.0); Oxyhemoglobin 93.9 % THb (90.0-100.0); PCO2 ABG 31.9 mmHg (35.0-45.0); PO2 FiO2 Ratio Arterial Blood 4.52 %; Site Drawn LEFT BRACHIAL; Total Hemoglobin 13.2 g/dL (12.0-18.0); pH ABG 7.306 (7.350-7.450)
[2024-05-17 08:11] LABS: Glucose Point of Care 164 mg/dl (65-105)
[2024-05-17] MEDS: ENOXAPARIN 40 MG/0.4 ML SYRINGE SUB-Q (08:15)
[2024-05-17] MEDS: lisinopriL 5 MG TABLET PO (08:15)
[2024-05-17] MEDS: ROSUVASTATIN 10 MG TABLET PO (08:15)
[2024-05-17] MEDS: EMPAGLIFLOZIN 25 MG TABLET PO (08:15)
[2024-05-17] MEDS: INSULIN GLARGINE (*BKC) 100 UNITS/ML 20 UNITS SUB-Q (08:17)
[2024-05-17] MEDS: SODIUM CHLORIDE 0.9% IV 1,000 ML 150 ML IV CONT ×3 (08:19→23:55)
[2024-05-17 08:20] LABS: Sodium 135 mmol/L (137-145)
[2024-05-17 08:28] LABS: Anion Gap 14 mmol/L (4-12); Blood Urea Nitrogen 12 mg/dL (9-20); Calcium 9.1 mg/dL (8.4-10.2); Carbon Dioxide 16 mmol/L (22-30); Chloride 105 mmol/L (98-107); Estimated CRCL calculation 129 ml/min; Estimated Glomerular Filt Rate > 60; Glucose 172 mg/dL (65-110); Potassium 4.2 mmol/L (3.4-5.0)
[2024-05-17 11:44] LABS: Glucose Point of Care 113 mg/dl (65-105)
[2024-05-17] MEDS: INSULIN ASPART (*BKC) 100 UNITS/ML 6 UNITS SUB-Q ×2 (11:52→17:00)
[2024-05-17 15:04] LABS: Anion Gap 14 mmol/L (4-12); Blood Urea Nitrogen 15 mg/dL (9-20); Calcium 8.6 mg/dL (8.4-10.2); Carbon Dioxide 13 mmol/L (22-30); Chloride 106 mmol/L (98-107); Estimated CRCL calculation 129 ml/min; Estimated Glomerular Filt Rate > 60; Glucose 203 mg/dL (65-110); Potassium 4.2 mmol/L (3.4-5.0); Sodium 133 mmol/L (137-145)
[2024-05-17 16:52] LABS: Glucose Point of Care 147 mg/dl (65-105)
[2024-05-17 19:33] LABS: Anion Gap 13 mmol/L (4-12); Blood Urea Nitrogen 16 mg/dL (9-20); Calcium 8.7 mg/dL (8.4-10.2); Carbon Dioxide 15 mmol/L (22-30); Chloride 104 mmol/L (98-107); Estimated CRCL calculation 129 ml/min; Estimated Glomerular Filt Rate > 60; Glucose 239 mg/dL (65-110); Potassium 3.8 mmol/L (3.4-5.0); Sodium 132 mmol/L (137-145)
[2024-05-17] MEDS: INSULIN ASPART (*BKC) 100 UNITS/ML SUB-Q (20:19)
[2024-05-17 20:21] LABS: Glucose Point of Care 227 mg/dl (65-105)
[2024-05-18] VITALS (7 sets, daily range): BP systolic 125–126; BP diastolic 58–66; PULSE 74–102; RESP 16–18; TEMP 36.5–36.9; O2SAT 97–100
[2024-05-18 04:54] LABS: Hematocrit 29.6 % (42.0-52.0); Hemoglobin 10.2 g/dL (14.0-18.0); Mean Corpuscular HGB Conc 34.5 g/dl (32-36); Mean Corpuscular Hemoglobin 31.9 pg (26-34); Mean Corpuscular Volume 92.5 fl (80-100); Mean Platelet Volume 11.9 fl (7.4-10.4); Platelet Count Result 305 k/mm3 (150-375); Red Cell Distribution Width 11.7 % (11.5-14.5); White Blood Count 10.3 K/mm3 (4.5-10.0)
[2024-05-18 05:11] LABS: Alanine Aminotransferase 9 U/L (6-50); Albumin Level 3.4 g/dL (3.5-5.1); Alkaline Phosphatase 75 U/L (38-126); Anion Gap 10 mmol/L (4-12); Aspartate Amino Transferase 17 U/L (17-59); Bilirubin,Total 3.7 mg/dL (0.2-1.3); Blood Urea Nitrogen 13 mg/dL (9-20); Calcium 8.8 mg/dL (8.4-10.2); Carbon Dioxide 17 mmol/L (22-30); Chloride 108 mmol/L (98-107); Estimated CRCL calculation 174 ml/min; Estimated Glomerular Filt Rate > 60; Glucose 145 mg/dL (65-110); Magnesium 1.9 mg/dL (1.6-2.3); Potassium 3.7 mmol/L (3.4-5.0); Sodium 135 mmol/L (137-145)
[2024-05-18] MEDS: SODIUM CHLORIDE 0.9% IV 1,000 ML 150 ML IV CONT ×2 (06:21→12:09)
[2024-05-18 08:01] LABS: Glucose Point of Care 139 mg/dl (65-105)
[2024-05-18] MEDS: ROSUVASTATIN 10 MG TABLET PO (08:56)
[2024-05-18] MEDS: EMPAGLIFLOZIN 25 MG TABLET PO (08:56)
[2024-05-18] MEDS: lisinopriL 5 MG TABLET PO (08:56)
[2024-05-18] MEDS: ENOXAPARIN 40 MG/0.4 ML SYRINGE SUB-Q (08:56)
[2024-05-18] MEDS: INSULIN GLARGINE (*BKC) 100 UNITS/ML 20 UNITS SUB-Q (08:57)
[2024-05-18] MEDS: INSULIN ASPART (*BKC) 100 UNITS/ML 6 UNITS SUB-Q ×3 (08:57→17:10)
--- NOTE | 2024-05-18 10:19 | PM.IMPN ---
Progress Note: A&P Assessment and Plan (1) DKA, type 2, not at goal: Code(s): E11.10 - Type 2 diabetes mellitus with ketoacidosis without coma Status: Acute (2) Noncompliance with medication regimen: Code(s): Z91.148 - Patient's other noncompliance with medication regimen for other reason Status: Acute (3) Tobacco abuse: Code(s): Z72.0 - Tobacco use Status: Acute (4) Hyperlipidemia: Code(s): E78.5 - Hyperlipidemia, unspecified Status: Acute Plan DKA with insulin dependent diabetes Upon arrival, patient was found have uncontrolled glucose, high anion gap metabolic acidosis, positive ketones secondary to noncompliance with medications. Patient received IVF bolus and currently on infusion Received Insulin infusion and Q1H glucose monitoring Continue Serial labs Replace electrolytes as needed Current anion gap is closed, transit to subQ insulin Resume a diabetic diet 05/17: Bicarbonate 15, anion gap 16, follow-up ABG: PH 7.306, patient still has DKA most likely Patient is on Lantus 20 unit, add lispro 6 unit a.c., continue sliding scale, start normal saline IV 150 mL/hour, follow-up BMP q6h 05/18: gap is closed, repeated BMP: AG 8 and HCO3 20. pt requests to be discharged today Elevated total bili Total bilirubin 3.1, trending up, liver enzymes normal Follow-up abdomen US:Normal right upper quadrant ultrasound. refer pt to GI outpatient f/u Hyperlipidemia: Code(s): E78.5 - Hyperlipidemia, unspecified Status: Acute Assessment and Plan: Continue atorvastatin Tobacco abuse: Code(s): Z72.0 - Tobacco use Status: Acute Assessment and Plan: Patient was counseled and encouraged to quit smoking Noncompliance with medication regimen: Code(s): Z91.148 - Patient's other noncompliance with medication regimen for other reason Status: Acute Assessment and Plan: Patient was encouraged to remain compliant with medication and did not discontinue treatment without discussing with his physician Type 2 diabetes mellitus: Qualifiers: Diabetes mellitus complication status: with hyperglycemia Diabetes mellitus long term care administrator insulin use: with long term care administrator use Qualified Code(s): E11.65 - Type 2 diabetes mellitus with hyperglycemia; Z79.4 - shelter (current) use of insulin Code(s): E11.9 - Type 2 diabetes mellitus without complications Status: Acute Assessment and Plan: Advised patient follow-up with the claim adjuster, patient may benefit from insulin pump infusion Subjective Date/time seen: 05/18/24 10:19 Interval history: Patient is afebrile, blood pressure stable, gap closed, bicarbonate 20, trending up. Patient denies abdomen pain, nausea vomiting diarrhea, blood glucose is well controlled Exam Narrative: GENERAL: Pleasant, in no acute distress. Well-nourished. - EYES: EOMI. Anicteric. - HENT: Moist mucous membranes. - LUNGS: Clear to auscultation bilaterally, no wheezing, rhonchi, or rales. - CARDIOVASCULAR: Regular rate and rhythm. No murmur. No JVD. - ABDOMEN: Soft, non-tender and non-distended. No palpable masses. - EXTREMITIES: No edema. Peripheral pulses 2+. Non-tender. - NEUROLOGIC: No focal neurological deficits. CN II-XII grossly intact. - PSYCHIATRIC: Awake, Alert and oriented x 3. Appropriate mood and affect. - SKIN: No rashes or lesions. Warm. - LYMPH: No cervical lymphadenopathy. Objective Data Vital Signs Vital Signs: Vital Signs - 24 hr 05/17/24 12:01 05/17/24 13:43 05/17/24 16:00 Temperature 97.1 F L Pulse Rate 89 80 98 Respiratory Rate 16 Blood Pressure 136/63 Pulse Oximetry 100 Oxygen Delivery 05/17/24 20:21 05/17/24 20:00 05/17/24 20:00 Temperature 98.8 F Pulse Rate 78 78 Respiratory Rate 18 Blood Pressure 126/67 Pulse Oximetry 98 Oxygen Delivery Room Air 05/18/24 00:00 05/18/24 04:00 05/18/24 05:19 Temperat
[2024-05-18 11:52] LABS: Glucose Point of Care 148 mg/dl (65-105)
[2024-05-18] MEDS: SODIUM BICARBONATE TAB 650 MG TABLET PO ×2 (12:09→17:09)
[2024-05-18 13:21] LABS: Appearance Urine Clear (Clear); Bilirubin Urine Negative (Negative); Blood Urine Negative (Negative); Color Urine Orange (Yellow); Glucose Urine UA 3+ mg/dL (Negative); Ketones Urine 3+ mg/dL (Negative); Leukocyte Esterase Ur Negative LEU/UL (Negative); Nitrate Urine Negative (Negative); Protein Urine Negative (Negative); Specific Grav Ur 1.029 (1.001-1.035); pH Urine 5.5 (5.0-9.0)
[2024-05-18 13:26] LABS: Add Urine Microscopic? NO
--- NOTE | 2024-05-18 15:42 | PM.DS ---
DS: Admitting Diagnosis Discharge Date 05/18 Admitting Diagnosis (1) DKA, type 2, not at goal: Code(s): E11.10 - Type 2 diabetes mellitus with ketoacidosis without coma Status: Acute (2) Noncompliance with medication regimen: Code(s): Z91.148 - Patient's other noncompliance with medication regimen for other reason Status: Acute (3) Tobacco abuse: Code(s): Z72.0 - Tobacco use Status: Acute (4) Hyperlipidemia: Code(s): E78.5 - Hyperlipidemia, unspecified Status: Acute DS: Discharge Diagnosis Discharge Diagnosis (1) DKA, type 2, not at goal: Code(s): E11.10 - Type 2 diabetes mellitus with ketoacidosis without coma Status: Acute (2) Noncompliance with medication regimen: Code(s): Z91.148 - Patient's other noncompliance with medication regimen for other reason Status: Acute (3) Tobacco abuse: Code(s): Z72.0 - Tobacco use Status: Acute (4) Hyperlipidemia: Code(s): E78.5 - Hyperlipidemia, unspecified Status: Acute DS: Summary Hospital Course Hospital Course: 38-year-old male with a past medical history of type 2 diabetes mellitus who has been noncompliant with medications who presented with to the ER with weakness fatigue and lethargy for 3 weeks. Patient was initially diagnosed with diabetes approximately March 2023. He was started on therapy with Lantus and metformin. His A1c is Endocrinology follow-up in July 2023 was 5.1 and his Lantus was discontinued and he was switched to Rybelsus and Jardiance. On review external medication reconciliation appears patient has not had these medications filled since November. His reports that patient was feeling well and quit taking his medications. He stopped checking his blood glucoses. Two or 3 days ago he got a continuous glucose monitor and noticed that his sugars were in the 400s and 500s. The triage note states the patient was not having difficulty managing his glucoses but instead the patient just was not checking his glucose is and not taking his medications. Over the last 3 weeks the patient has become so lethargic that his states he does not get up and is sleeping all day. He reports that he is drinking water nonstop. He is urinating every 15-20 minutes. He denies any dysuria. Denies any hematuria. His reports that he has lost at least 20 lb over the last month. He did have 1 episode of emesis yesterday. He denies any chest pain but reports that he feels short of breath. However a sensation of shortness of breath has improved with IV fluids and insulin. He denies any symptoms of neuropathy. His reports that he has been having some dry cough for 2-3 weeks. He denies any ill contacts. He denies having any fevers but his thinks that the patient has been having fevers but they did not check it with a thermometer. The patient does smoke but over the last couple of weeks due to his illness has cut back to only a couple of cigarettes a day and he has felt so bad over the last couple of days that he has not smoked at all. The following med issues have been addressed during hospitalization DKA with insulin dependent diabetes Upon arrival, patient was found have uncontrolled glucose, high anion gap metabolic acidosis, positive ketones secondary to noncompliance with medications. Patient received IVF bolus and currently on infusion Received Insulin infusion and Q1H glucose monitoring Continue Serial labs Replace electrolytes as needed Current anion gap is closed, transit to subQ insulin Resume a diabetic diet 05/17: Bicarbonate 15, anion gap 16, follow-up ABG: PH 7.306, patient still has DKA most likely Patient is on Lantus 20 unit, add lispro 6 unit a.c., continue sliding scale, start normal saline IV 150 mL/hour, follow-up BMP q6h 05/18: gap is closed, repeated BMP: AG 8 and HCO3 20. pt requests to be discharged today Advised patient follow-up with the
[2024-05-18 16:06] LABS: Anion Gap 8 mmol/L (4-12); Blood Urea Nitrogen 13 mg/dL (9-20); Calcium 8.7 mg/dL (8.4-10.2); Carbon Dioxide 20 mmol/L (22-30); Chloride 109 mmol/L (98-107); Estimated CRCL calculation 148 ml/min; Estimated Glomerular Filt Rate > 60; Glucose 131 mg/dL (65-110); Potassium 3.5 mmol/L (3.4-5.0); Sodium 137 mmol/L (137-145)
[2024-05-18 16:45] LABS: Glucose Point of Care 110 mg/dl (65-105)
== END 2024-05-18 17:33 | disposition home or self-care (01) ==
LOC: ANHED 05-16 03:08 → ANHICU 05-16 06:33 → ANH2MED 05-17 13:38 → ANHICU 05-19 07:22
PROVIDERS: Internal Medicine; Admitting Provider Internal Medicine; Emergency Provider Physician Assistant; PCP Internal Medicine; Visit Provider Hospitalist
DX: E11.10 Type 2 diabetes mellitus with ketoacidosis without coma (principal); E80.6 Other disorders of bilirubin metabolism; E78.5 Hyperlipidemia, unspecified; F17.210 Nicotine dependence, cigarettes, uncomplicated; Z79.84 Long term (current) use of oral hypoglycemic drugs; Z91.148 Patient's other noncompliance with medication regimen for other reason
CPT/HCPCS: 36415; 36600; 71045; 76705; 80048; 80053; 81003; 82010; 82805; 82948; 83036; 83605; 83735; 84100; 84443; 84484; 85025; 85027; 87641; 93005; 96360; 96361; 96365; 96366; 96368; 96372; 99285; A9270; G0378; G0379; J1650; J1815; J3480; J7030; J7120

== ENCOUNTER 2024-05-20 14:07 | Outpatient (CLI) | payer OTHER, SELFPAY ==
[2024-05-20 15:02] LABS: Alanine Aminotransferase 16 U/L (6-50); Albumin Level 3.9 g/dL (3.5-5.1); Alkaline Phosphatase 92 U/L (38-126); Anion Gap 11 mmol/L (4-12); Aspartate Amino Transferase 24 U/L (17-59); Bilirubin,Total 1.9 mg/dL (0.2-1.3); Blood Urea Nitrogen 14 mg/dL (9-20); Carbon Dioxide 23 mmol/L (22-30); Chloride 102 mmol/L (98-107); Estimated Glomerular Filt Rate > 60; Glucose 212 mg/dL (65-110); Potassium 3.5 mmol/L (3.4-5.0); Sodium 136 mmol/L (137-145)
[2024-05-21 10:38] LABS: Bilirubin Indirect 0.9 mg/dL (0-1.1)
== END 2024-05-20 14:08 | disposition home or self-care (01) ==
LOC: ANHLAB 14:09
PROVIDERS: PCP Internal Medicine; Visit Provider Nurse Practitioner
DX: Z79.4 Long term (current) use of insulin (principal); E80.6 Other disorders of bilirubin metabolism; E11.65 Type 2 diabetes mellitus with hyperglycemia
CPT/HCPCS: 36415; 80053; 82248

== ENCOUNTER 2024-05-21 13:30 | Outpatient (CLI) | payer OTHER, SELFPAY ==
[2024-05-21 14:14] LABS: Hemoglobin 7.8 g/dL (14.0-18.0); Mean Corpuscular HGB Conc 33.9 g/dl (32-36); Mean Corpuscular Hemoglobin 32.1 pg (26-34); Mean Corpuscular Volume 94.7 fl (80-100); Mean Platelet Volume 12.3 fl (7.4-10.4); Platelet Count Result 310 k/mm3 (150-375); Red Blood Count 2.43 M/mm3 (4.6-6.20); Red Cell Distribution Width 12.9 % (11.5-14.5); White Blood Count 14.8 K/mm3 (4.5-10.0)
[2024-05-21 14:53] LABS: Anisocytosis 1+; Band Neutrophils Percent 9 % (0-6); Hypochromasia 2+; Lymphocytes Absolute Manual 3.55 K/mm3 (1.1-4.5); Metamyelocytes Percent 4 %; Monocytes Absolute Manual 0.59 K/mm3 (0.1-0.90); Monocytes Percent Manual 4 % (3-9); Neutrophils Absolute Manual 10.06 K/mm3 (1.3-6.7); Neutrophils Percent Manual 59 % (46-73); Platelet Estimate Adequate (Adequate); Schistocytes None Seen; Total Cells Counted 100
== END 2024-05-21 13:31 | disposition home or self-care (01) ==
LOC: ANHLAB 13:32
PROVIDERS: PCP Internal Medicine; Visit Provider Nurse Practitioner
DX: E11.65 Type 2 diabetes mellitus with hyperglycemia (principal); E78.5 Hyperlipidemia, unspecified; Z79.4 Long term (current) use of insulin
CPT/HCPCS: 36415; 85025

== ENCOUNTER 2024-06-03 08:43 | Outpatient (CLI) | payer OTHER, SELFPAY ==
[2024-06-03 09:21] LABS: Basophils Percent Auto 0.7 % (0.2-1.2); Eosinophils Absolute Auto 0.1 K/mm3 (0-0.3); Eosinophils Percent Auto 2.9 % (0-4.4); Hematocrit 35.1 % (42.0-52.0); Hemoglobin 10.9 g/dL (14.0-18.0); Immature Granulocyte Absolute 0.02 K/mm3 (0.00-0.031); Immature Granulocyte Percent A 0.5 % (0-0.5); Immature Reticulocyte Fraction 20.1 % (3.0-15.9); Lymphocytes Absolute Auto 2.05 K/mm3 (0.9-3.2); Mean Corpuscular HGB Conc 31.1 g/dl (32-36); Mean Corpuscular Hemoglobin 32.2 pg (26-34); Mean Corpuscular Volume 103.8 fl (80-100); Mean Platelet Volume 10.8 fl (7.4-10.4); Monocytes Absolute Auto 0.5 K/mm3 (0.1-0.6); Monocytes Percent Auto 12.2 % (2.6-8.5); Neutrophils Absolute Auto 1.5 K/mm3 (1.3-6.7); Neutrophils Percent Auto 34.7 % (45.5-73.1); Platelet Count Result 191 k/mm3 (150-375); Red Blood Count 3.38 M/mm3 (4.6-6.20); Red Cell Distribution Width 14.7 % (11.5-14.5); Reticulocyte Hemoglobin Conten 29.7 pg (28.2-36.6); Reticulocyte Percent 9.75 % (0.7-4.3); Reticulocytes Absolute 0.33 10^6/uL (0.02-0.10); White Blood Count 4.2 K/mm3 (4.5-10.0)
[2024-06-03 11:00] LABS: Alanine Aminotransferase 28 U/L (6-50); Alkaline Phosphatase 77 U/L (38-126); Anion Gap 8 mmol/L (4-12); Aspartate Amino Transferase 28 U/L (17-59); Bilirubin,Total 0.6 mg/dL (0.2-1.3); Blood Urea Nitrogen 7 mg/dL (9-20); Calcium 8.8 mg/dL (8.4-10.2); Carbon Dioxide 24 mmol/L (22-30); Chloride 105 mmol/L (98-107); Estimated Glomerular Filt Rate > 60; Glucose 159 mg/dL (65-110); Lactate Dehydrogenase 185 U/L (120-246); Potassium 4.1 mmol/L (3.4-5.0); Sodium 137 mmol/L (137-145)
[2024-06-03 12:00] LABS: Folic Acid 9.2 ng/mL (2.76->20)
== END 2024-06-03 08:44 | disposition home or self-care (01) ==
LOC: ANHLAB 08:44
PROVIDERS: PCP Internal Medicine; Visit Provider Internal Medicine
DX: D64.9 Anemia, unspecified (principal); E80.6 Other disorders of bilirubin metabolism
CPT/HCPCS: 36415; 80053; 82607; 82728; 82746; 83615; 84443; 85025; 85046

== ENCOUNTER 2024-06-10 16:09 | Outpatient (CLI) | payer OTHER, SELFPAY ==
[2024-06-10 16:41] LABS: Anion Gap 9 mmol/L (4-12); Blood Urea Nitrogen 9 mg/dL (9-20); Calcium 9.4 mg/dL (8.4-10.2); Carbon Dioxide 27 mmol/L (22-30); Chloride 103 mmol/L (98-107); Cholesterol 145 mg/dL (0-200); Estimated Glomerular Filt Rate > 60; Glucose 78 mg/dL (65-110); HDL Direct 45 mg/dL; Potassium 3.7 mmol/L (3.4-5.0); Sodium 139 mmol/L (137-145); Triglycerides 189 mg/dL (<150)
[2024-06-10 16:53] LABS: LDL Cholesterol Direct 67 mg/dL
[2024-06-10 16:57] LABS: Creatinine Urine 146.9 mg/dL
[2024-06-10 17:11] LABS: Microalbumin Urine Random < 6.0 mg/L (0-16.7)
[2024-06-10 17:12] LABS: MALB Creatinine Ratio < 4.1 mg/g (0-30)
[2024-06-11 17:04] LABS: C-Peptide 2.35 ng/mL (0.80-3.85)
[2024-06-15 11:44] LABS: Glutamic acid decarboxylase AA <5 IU/mL (<5)
[2024-06-18 03:22] LABS: Zinc Transporter 8 Antibody <10 U/mL (<15)
[2024-06-21 23:43] LABS: Islet Cell Antibody Screen NEGATIVE (NEGATIVE)
== END 2024-06-10 16:10 | disposition home or self-care (01) ==
LOC: ANHLAB 16:10
PROVIDERS: PCP Internal Medicine; Visit Provider Internal Medicine Endocrinology, Diabetes & Metabolism
DX: E11.65 Type 2 diabetes mellitus with hyperglycemia (principal); Z79.4 Long term (current) use of insulin
CPT/HCPCS: 36415; 80048; 80061; 82043; 84681; 86341

== ENCOUNTER 2024-06-20 13:57 | Emergency (ER) | payer OTHER, SELFPAY ==
[2024-06-20 14:16] VITALS: BP 146/90; PULSE 76; RESP 16; TEMP 37.3; O2SAT 98
--- NOTE | 2024-06-20 14:50 | ED.GENADULT ---
HPI - General Adult General Chief complaint: Dental/Oral Stated complaint: SWOLLEN AREA R JAW Time Seen by Provider: 06/20/24 14:30 Source: patient, RN notes reviewed and old records reviewed Mode of arrival: ambulatory Limitations: no limitations History of Present Illness HPI narrative: 38 year old male presents to [facility] with complaints of 2-3 day history of swelling along his right jaw line. Patient has full mcclain and reports that he has had problems with ingrown hairs in his mcclain before that get infected and he takes antibiotics and they usually will drain and then heals. Patient is diabetic and on insulin and does sliding scale coverage also. Patient denies any dental pain. MD complaint: swollen area to right jaw Onset (ago): day(s) (2-3 day) Location: face (right jaw line area swelling ) Severity scale (1-10): 6 Treatments prior to arrival: none Related Data Allergies Allergy/AdvReac Type Severity Reaction Status Date / Time No Known Allergies Allergy Verified 06/20/24 14:19 Review of Systems Review of Systems: CONSTITUTIONAL: Denies fever, chills, or sweats. EYES: Denies visual changes, redness, or discharge. ENT: Denies rhinorrhea, congestion, sore throat, or otalgia. CARDIOVASCULAR: Denies chest pain, palpitations, or edema. RESPIRATORY: Denies cough or dyspnea. GASTROINTESTINAL: Denies abdominal pain, nausea, vomiting, or diarrhea. GENITOURINARY: Denies dysuria or hematuria. SKIN: Denies rash or itching.swollen raised tissue area along right jaw area of mcclain are with tenderness no drainage noted, no heat or fluctuation of tissue MUSCULOSKELETAL: Denies back pain, joint pain, or myalgia. NEUROLOGIC: Denies headache, numbness, or weakness. PSYCHIATRIC: Denies anxiety or depression. All systems reviewed & are unremarkable except as noted in HPI and below PMFSH Past Medical History Medical History Anxiety Eczema Epidermoid cyst of face Erectile dysfunction Hyperlipidemia Insomnia New onset type 2 diabetes mellitus Tobacco abuse Surgical History Surgical History H/O excision of epidermal inclusion cyst (03/2023) Left forehead, left anterior cheek, left posterior cheek History of surgical removal of pilonidal cyst (~2014) 04/09/2023 - 3 removed History of surgical removal of pilonidal cyst (~2020) Family History Family History Father Diabetes mellitus Hypertension Mother Hypertension Social History Social History Social History: The patient and his have been together for 10 years and they have been since 2019. They have do 3 children ages 19677 and 4 (as of documentation April 2024). 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 The patient denies any history of significant alcohol use. He does smoke up to half a pack of cigarettes per day but in recent months is cut down to 2 or 3 cigarettes a day. He started smoking in his late teens. He denies illicit substance use. Code status: Full code Surrogate decision maker: Kaylene Lane () Smoking packs per day: 0.5 Smoking cigarettes per day: 10.0 Years smoked: 18 Smoking pack-years: 9.00 Smoking status: Current every day smoker Tobacco type: cigarettes Alcohol intake: current Drinks per week: 3 Alcohol use details: Quit 02/2023 Substance use: never Substance use type: does not use Do You Feel Safe in your Home?: Yes Lack of Transportation: No Lack of Food: Never True Current Housing: I Have Housing Concerned About Future Housing: No Difficulty Paying Gas/Electric Bills: No Difficulty Paying for Meds: No Currently Unemployed: No Education: High School Diploma/GED Difficulty w/ Childcare or Famil
== END 2024-06-20 15:18 | disposition home or self-care (01) ==
PROVIDERS: Emergency Provider Registered Nurse; PCP Internal Medicine
DX: L73.9 Follicular disorder, unspecified (principal); F17.210 Nicotine dependence, cigarettes, uncomplicated; E78.5 Hyperlipidemia, unspecified; E11.9 Type 2 diabetes mellitus without complications; Z79.4 Long term (current) use of insulin
CPT/HCPCS: 99213; G0463

== ENCOUNTER 2024-07-21 10:27 | Emergency (ER) | payer OTHER, SELFPAY ==
[2024-07-21 10:43] VITALS: BP 109/82; PULSE 84; RESP 16; TEMP 36.5; O2SAT 100
--- NOTE | 2024-07-21 10:49 | ED.URI ---
HPI - URI/Sore Throat General Chief Complaint: Upper Respiratory Infection Stated Complaint: SORE THROAT Time Seen by Provider: 07/21/24 10:48 Source: patient, RN notes reviewed and old records reviewed Mode of arrival: ambulatory Limitations: no limitations History of Present Illness HPI Narrative: 38 year old male who presents to [facility] with complaints of sore throat and cough for the past 2 days.with no known fevers. Patient reports that daughter was diagnosed with strep recently and his mother had COVID last week. Patient reports that he has not had any shortness of breath or any body aches, admits to some headache discomfort yesterday. MD elicited complaint: cough and sore throat Onset (ago): day(s) (2) Severity: moderate Pain scale (0-10): 8 Able to tolerate fluids by mouth: Yes Treatments prior to arrival: none Related Data Home Medications Medication Instructions Recorded Confirmed blood-glucose sensor (Dexcom G7 07/21/24 07/21/24 Sensor device) insulin lispro 100 unit/mL 50 unit continuous subcutaneous 07/21/24 07/21/24 subcutaneous solution infusion DAILY Allergies Allergy/AdvReac Type Severity Reaction Status Date / Time No Known Allergies Allergy Verified 07/21/24 10:34 Review of Systems Review of Systems: CONSTITUTIONAL: Denies malaise, chills, sweats, or fever. EYES: Denies visual changes, redness, or discharge. ENT: Reports rhinorrhea, congestion, sinus pain,no otalgia and positive for sore throat. CARDIOVASCULAR: Denies chest pain, palpitations, or edema. RESPIRATORY: Reports cough.? Denies dyspnea. GASTROINTESTINAL: Denies abdominal pain, nausea, vomiting, diarrhea SKIN: Denies rash or itching. MUSCULOSKELETAL: Denies myalgia. NEUROLOGIC: Reports intermittent headache. All systems reviewed & are unremarkable except as noted in HPI and below PMFSH Past Medical History Medical History Anxiety Eczema Epidermoid cyst of face Erectile dysfunction Hyperlipidemia Insomnia New onset type 2 diabetes mellitus Tobacco abuse Surgical History Surgical History H/O excision of epidermal inclusion cyst (03/2023) Left forehead, left anterior cheek, left posterior cheek History of surgical removal of pilonidal cyst (~2014) 04/09/2023 - 3 removed History of surgical removal of pilonidal cyst (~2020) Family History Family History Father Diabetes mellitus Hypertension Mother Hypertension Social History Social History Social History: The patient and his have been together for 10 years and they have been since 2019. They have do 3 children ages [id number] and 4 (as of documentation April 2024). 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 The patient denies any history of significant alcohol use. He does smoke up to half a pack of cigarettes per day but in recent months is cut down to 2 or 3 cigarettes a day. He started smoking in his late teens. He denies illicit substance use. Code status: Full code Surrogate decision maker: Kaylene Lane () Smoking packs per day: 0.5 Smoking cigarettes per day: 10.0 Years smoked: 18 Smoking pack-years: 9.00 Smoking status: Current every day smoker Tobacco type: cigarettes Alcohol intake: current Drinks per week: 3 Alcohol use details: Quit 02/2023 Substance use: never Substance use type: does not use Do You Feel Safe in your Home?: Yes Lack of Transportation: No Lack of Food: Never True Current Housing: I Have Housing Concerned About Future Housing: No Difficulty Paying Gas/Electric Bills: No Difficulty Paying for Meds: No Currently Unemployed: No Education: High School Diploma/GED Dif
[2024-07-21 11:37] LABS: EDSTREPNEGPOS1 Negative
== END 2024-07-21 11:03 | disposition home or self-care (01) ==
PROVIDERS: Emergency Provider Registered Nurse; PCP Clinical Nurse Specialist
DX: J02.9 Acute pharyngitis, unspecified (principal); J06.9 Acute upper respiratory infection, unspecified; Z20.822 Contact with and (suspected) exposure to COVID-19; F17.210 Nicotine dependence, cigarettes, uncomplicated; E78.5 Hyperlipidemia, unspecified; E11.9 Type 2 diabetes mellitus without complications; Z79.4 Long term (current) use of insulin
CPT/HCPCS: 87081; 87426; 87880; 99213; G0463

== ENCOUNTER 2025-05-30 15:17 | Emergency (ER) | payer SELFPAY ==
[2025-05-30 15:21] VITALS: BP 141/95; PULSE 92; RESP 16; TEMP 36.7; O2SAT 100
--- NOTE | 2025-05-30 15:37 | ED.DENTAL ---
HPI - Dental/Oral General Chief complaint: Dental/Oral Stated complaint: Abscess Time Seen by Provider: 05/30/25 15:31 Source: patient and RN notes reviewed Mode of arrival: ambulatory Limitations: no limitations History of Present Illness HPI Narrative: Patient presents today complaining of left lower jaw pain and swelling x2 days. Currently rates his pain 5/10 and has tried no [id number] treatment prior to arrival. Denies trismus, shortness of breath, difficulty swallowing, fever. He does have a dentist but has not yet made an appointment. History of diabetes with most recent A1c of 5.4. Related Data Allergies Allergy/AdvReac Type Severity Reaction Status Date / Time No Known Allergies Allergy Verified 05/30/25 15:28 [facility] Past Medical History Medical History Insomnia New onset type 2 diabetes mellitus Tobacco abuse Hyperlipidemia Erectile dysfunction Eczema Anxiety Epidermoid cyst of face Surgical History Surgical History H/O excision of epidermal inclusion cyst (03/2023) Left forehead, left anterior cheek, left posterior cheek History of surgical removal of pilonidal cyst (~2020) History of surgical removal of pilonidal cyst (~2014) 04/09/2023 - 3 removed Family History Family History Father Diabetes mellitus Hypertension Mother Hypertension Social History Social History Social History: The patient and his have been together for 10 years and they have been since 2019. They have do 3 children ages [id number] and 4 (as of documentation April 2024). 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 The patient denies any history of significant alcohol use. He does smoke up to half a pack of cigarettes per day but in recent months is cut down to 2 or 3 cigarettes a day. He started smoking in his late teens. He denies illicit substance use. Code status: Full code Surrogate decision maker: Kaylene Lane () Smoking packs per day: 0.5 Smoking cigarettes per day: 10.0 Years smoked: 18 Smoking pack-years: 9.00 Smoking status: Current every day smoker Tobacco type: cigarettes Alcohol intake: current Drinks per week: 3 Alcohol use details: Quit 02/2023 Substance use: never Substance use type: does not use Do You Feel Safe in your Home?: Yes Lack of Transportation: No Lack of Food: Never True Current Housing: I Have Housing Concerned About Future Housing: No Difficulty Paying Gas/Electric Bills: No Difficulty Paying for Meds: No Currently Unemployed: No Education: High School Diploma/GED Difficulty w/ Childcare or Family Care: No Living arrangements: with family Spiritual care concerns: No Comments At time of signature, I have reviewed and agree with nursing past medical, surgical, social and family history unless otherwise noted. Please see nursing chart for further information. There is no relevant family history pertinent to the presenting complaint Exam Narrative: GENERAL: Well-appearing, well-nourished, and in no acute distress. HEAD: Normocephalic, atraumatic. EYES: EOMI. No redness or drainage. Conjunctivae normal. ENT: Mucous membranes pink and moist. Tenderness the left lower jaw line. Teeth appear normal. Tenderness to the lateral gingiva without erythema, edema, or obvious periapical abscess. NECK: Normal AROM. Supple. No lymphadenopathy. CHEST: No respiratory distress. EXTREMITIES: Normal range of motion. No edema. SKIN: Warm, dry, no rash. Capillary refill normal. Normal skin turgor. NEURO: No focal deficits. Alert and oriented x3. Gait steady. PSYCH: Normal affect. No signs of depression or anxiety. Course Course Level of Care: Express Care Visit Vital Signs Vital signs: Vital Signs Temperature 98.0 F 05/30/25 15:21 Pulse Rate 92 05/30/25 15:21 Respiratory Rate 16 05/30/25 15:21 Blood Pressure 141/95 H 05/30/25 15:21 Pulse Oximetry 100 05/30/25 15:21 Oxygen Delivery Room Air 05/30/25 15:21 Temperature 98.0 F 05/30/25 15:21 Pulse Rate 92 05/30/25 15:21 Respiratory Rate 16 05/30/25 15:21 Blood Pressure 141/95 H 05/30/25 15:21 Pulse Oximetry 100 05/30/25 15:21 Oxygen Delivery Room Air 05/30/25 15:21 Reviewed MDM - Dental/Oral MDM Narrative Medical decision making narrative: Patient is 39-year-old male with left lower jaw pain and swelling. He is experiencing no trismus, shortness of breath, difficulty swallowing, or other systemic symptoms that would warrant ER transfer at this time. Vital signs stable. He will be treated with a course of amoxicillin for presumed dental abscess, and has been instructed to call his dentist and schedule a follow-up visit. ED precautions and anticipatory guidance given. Differential Diagnosis Differential diagnosis: Likely gingival abscess, dental caries, toothache, dental abscess and fracture of tooth Critical Care Time Critical Care Time Critical Care Time: No Discharge Plan Discharge Clinical Impression: Dental abscess Patient Disposition: Home Condition: Stable Instructions: Antibiotic Form, Dental Abscess (ED) Additional Instructions: Please take the amoxicillin as prescribed until gone. Take Tylenol or ibuprofen for pain if needed. Follow-up with a dentist as soon as possible for further evaluation. As discussed, please go to the ER immediately with worsening symptoms such as worsening swelling, fever, shortness of breath, difficulty swallowing or opening or closing your mouth. Your blood pressure was elevated above 120/80 today at Urgent Care. This puts you above the threshold for follow up. Please schedule a followup visit with your personal physician as soon as possible, for further evaluation and treatment. Even blood pressure exceeding 120/80 may indicate pre-hypertension. Patient Language: Azerbaijani Prescriptions: New amoxicillin 875 mg tablet 875 mg PO Q12H 10 Days Qty: 20 0RF No Action (DME) Dexcom G7 Sensor Device MISCELLANEOUS Qty: 9 2RF Rx Instructions: As directed (DME) blood-glucose meter Misc See Rx Instructions .ROUTE .MEDSUPPLY Qty: 1 0RF Rx Instructions: To check glucose 4'x per day. (DME) lancets [OneTouch UltraSoft 2 Lancet] 30 gauge misc See Rx Instructions .Route Qty: 200 2RF Rx Instructions: As directed to check blood sugars 8 times a day Follow-up/Referrals: PHYSICIAN,[employer] TECHNICIAN [Primary Care Provider] - Time of Disposition: 15:42
== END 2025-05-30 15:46 | disposition home or self-care (01) ==
PROVIDERS: Emergency Provider Nurse Practitioner
DX: K04.7 Periapical abscess without sinus (principal); F17.210 Nicotine dependence, cigarettes, uncomplicated; E11.9 Type 2 diabetes mellitus without complications; E78.5 Hyperlipidemia, unspecified
CPT/HCPCS: 99213; G0463

== ENCOUNTER 2025-07-31 10:06 | Emergency (ER) | payer SELFPAY ==
[2025-07-31 10:28] VITALS: BP 135/92; PULSE 102; RESP 20; TEMP 36.3; O2SAT 100
[2025-07-31 10:46] LABS: EDCOVIDSCREEN Negative (Negative); EDINFLUASCREEN Negative (Negative); EDINFLUBSCREEN Negative (Negative); EDSTREPNEGPOS1 Negative (Negative)
--- NOTE | 2025-07-31 11:18 | ED.GENADULT ---
HPI - General Adult General Chief complaint: Upper Respiratory Infection Stated complaint: SORE THROAT/STUFFY NOSE/COUGH Source: patient Mode of arrival: ambulatory Limitations: no limitations History of Present Illness HPI narrative: Patient presents for evaluation of sick symptoms since yesterday. He reports sinus congestion, thick green nasal drainage, sore throat, cough, shortness of breath. He denies any fever, chills, nausea, vomiting. He also reports an area of swelling to the left inguinal region that he believes is an abscess. He has recurrent symptoms in his groins bilaterally and in the bilateral axillary regions. He works for the [employer] system so believes he may have come into contact with some sick students at work. He tried taking nyquil for his symptoms. He has a history of diabetes but is not on medication as his last A1c was 5.7. Related Data Allergies Allergy/AdvReac Type Severity Reaction Status Date / Time No Known Allergies Allergy Verified 07/31/25 10:26 Review of Systems Review of Systems: CONSTITUTIONAL: Denies fever, chills, or sweats. EYES: Denies visual changes, redness, or discharge. ENT: Reports sinus congestion, thick green drainage from the nares, and sore throat. CARDIOVASCULAR: Denies chest pain, palpitations, or edema. RESPIRATORY: Reports cough and shortness of breath. GASTROINTESTINAL: Denies abdominal pain, nausea, vomiting, or diarrhea. GENITOURINARY: Denies dysuria or hematuria. SKIN: Reports area of swelling to the left inguinal region MUSCULOSKELETAL: Denies back pain, joint pain, or myalgia. NEUROLOGIC: Denies headache, numbness, dizziness, or weakness. PSYCHIATRIC: Denies anxiety or depression. [facility] Past Medical History Medical History Insomnia New onset type 2 diabetes mellitus Tobacco abuse Hyperlipidemia Erectile dysfunction Eczema Anxiety Epidermoid cyst of face Surgical History Surgical History H/O excision of epidermal inclusion cyst (03/2023) Left forehead, left anterior cheek, left posterior cheek History of surgical removal of pilonidal cyst (~2020) History of surgical removal of pilonidal cyst (~2014) 04/09/2023 - 3 removed Family History Family History Father Diabetes mellitus Hypertension Mother Hypertension Social History Social History Social History: The patient and his have been together for 10 years and they have been since 2019. They have do 3 children ages [id number] and 4 (as of documentation April 2024). 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 The patient denies any history of significant alcohol use. He does smoke up to half a pack of cigarettes per day but in recent months is cut down to 2 or 3 cigarettes a day. He started smoking in his late teens. He denies illicit substance use. Code status: Full code Surrogate decision maker: Kaylene Lane () Smoking packs per day: 0.5 Smoking cigarettes per day: 10.0 Years smoked: 18 Smoking pack-years: 9.00 Smoking status: Current every day smoker Tobacco type: cigarettes Alcohol intake: current Drinks per week: 3 Alcohol use details: Quit 02/2023 Substance use: never Substance use type: does not use Do You Feel Safe in your Home?: Yes Lack of Transportation: No Lack of Food: Never True Current Housing: I Have Housing Concerned About Future Housing: No Difficulty Paying Gas/Electric Bills: No Difficulty Paying for Meds: No Currently Unemployed: No Education: High School Diploma/GED Difficulty w/ Childcare or Family Care: No Living arrangements: with family Spiritual care concerns: No Exam Narrative: GENERAL: Appears acutely ill but nontoxic HEAD: Normocephalic, atraumatic. EYES: PERRLA and EOMI. ENT: Nares clear, no rhinorrhea or epistaxis. Mucous membranes moist. Oropharynx without tonsillar hypertrophy exudate or other lesions. Bilateral TMs pearly silva nonbulging NECK: Supple. No adenopathy or masses. No carotid bruits or JVD CHEST: Clear to auscultation. No respiratory distress. No wheezes rales or rhonchi HEART: Regular rate and rhythm. No murmur heard. Normal peripheral pulses. ABDOMEN: Soft, nontender, nondistended, normal active bowel sounds. EXTREMITIES: Normal range of motion. No edema. SKIN: there is hyper pigmented scarred skin noted to bilateral inguinal regions. There is an approximately 5 mm raised indurated area to the left inguinal region without any active drainage NEURO: No focal deficits. Alert and oriented x3. PSYCH: Normal mood and affect. Course Course Emergency Course: this is a 39 year male who presented for evaluation of sick symptoms. COVID, influenza, strep were all negative. Exam consistent with bacterial sinusitis. Will treat with cefpodoxime. Add Bactrim for what seems to be hydradenitis suppurativa. Asked that he speak with his primary care provider to determine whether he needs a referral to General surgery. There is no drainable fluid collection on exam today. Increase hydration. [id number] agents for symptom management. Follow up with primary provider. Go to the ER for worsening symptoms. Patient in agreement with plan care. Level of Care: Express Care Visit Vital Signs Vital signs: Vital Signs Temperature 36.3 C L 07/31/25 10:28 Pulse Rate 102 H 07/31/25 10:28 Respiratory Rate 07/31/25 10:28 Blood Pressure 135/92 H 07/31/25 10:28 Pulse Oximetry 07/31/25 10:28 Oxygen Delivery Room Air 07/31/25 10:28 Temperature 36.3 C L 07/31/25 10:28 Pulse Rate 102 H 07/31/25 10:28 Respiratory Rate 07/31/25 10:28 Blood Pressure 135/92 H 07/31/25 10:28 Pulse Oximetry 07/31/25 10:28 Oxygen Delivery Room Air 07/31/25 10:28 Medical Decision Making Vital Signs Vital Signs: Vital Signs Temperature 36.3 C L 07/31/25 10:28 Pulse Rate 102 H 07/31/25 10:28 Respiratory Rate 07/31/25 10:28 Blood Pressure 135/92 H 07/31/25 10:28 Pulse Oximetry 07/31/25 10:28 Oxygen Delivery Room Air 07/31/25 10:28 Temperature 36.3 C L 07/31/25 10:28 Pulse Rate 102 H 07/31/25 10:28 Respiratory Rate 07/31/25 10:28 Blood Pressure 135/92 H 07/31/25 10:28 Pulse Oximetry 07/31/25 10:28 Oxygen Delivery Room Air 07/31/25 10:28 Lab Data Labs: Lab Results 07/31/25 Range/Units 10:44 POC Influenza A Ag Negative (Negative) POC Influenza B Ag Negative (Negative) POC SARS CoV-2 Ag Negative (Negative) POC Grp A Strep Screen Negative (Negative) Discharge Plan Discharge Clinical Impression: Bacterial sinusitis, Abscess of groin Patient Disposition: Home Condition: Stable Instructions: Antibiotic Form, Sinusitis (ED), Abscess (ED) Additional Instructions: Please speak with her primary care provider to determine whether you need a referral to General surgery for potential hydradenitis suppurativa Patient Language: Citizen Of [place] Prescriptions: New cefpodoxime 200 mg tablet 200 mg PO Q12H Qty: 20 0RF Rx Instructions: must administer with a meal/food sulfamethoxazole-trimethoprim [Bactrim DS] 800-160 mg tablet 1 tablet PO Q12H Qty: 20 0RF No Action (DME) Dexcom G7 Sensor Device MISCELLANEOUS Qty: 9 2RF Rx Instructions: As directed (DME) blood-glucose meter Misc See Rx Instructions .ROUTE .MEDSUPPLY Qty: 1 0RF Rx Instructions: To check glucose 4'x per day. (DME) lancets [OneTouch UltraSoft 2 Lancet] 30 gauge misc See Rx Instructions .Route Qty: 200 2RF Rx Instructions: As directed to check blood sugars 8 times a day Follow-up/Referrals: Flower Marie, TEST ENGINE OPERATOR-C [Primary Care Provider, Internal Medicine] Time of Disposition: 11:17
== END 2025-07-31 11:24 | disposition home or self-care (01) ==
PROVIDERS: Emergency Provider Nurse Practitioner; PCP Clinical Nurse Specialist
DX: J32.9 Chronic sinusitis, unspecified (principal); L02.214 Cutaneous abscess of groin; Z20.822 Contact with and (suspected) exposure to COVID-19; F17.210 Nicotine dependence, cigarettes, uncomplicated; E78.5 Hyperlipidemia, unspecified
CPT/HCPCS: 87081; 87426; 87804; 87880; 99213; G0463

== ENCOUNTER 2025-11-16 07:51 | Emergency (ER) | payer OTHER, SELFPAY ==
--- OUTSIDE RECORDS SUMMARY | 2025-11-16 07:54 | XMS_ITS | Clinical Summary ---
Author Organization [facility] Address [address] [place] [address] Care Team Providers Care Glaciologist Name Role Phone Unavailable Primary Care Provider Unavailabl e Social History Tobacco Use Types Packs/Day Years Used Date Smoking Tobacco: Never Assessed Sex and Gender Information Value Date Recorded Sex Assigned at Not on file Legal Sex Male 11:43 PM EST Gender Identity Not on file Sexual Orientation Not on file Plan of Treatment Not on file Medical Devices Not on file Insurance [facility]
--- OUTSIDE RECORDS SUMMARY | 2025-11-16 07:54 | XMS_ITS | Clinical Summary ---
Author Organization [facility] Address [address] [place] [address] Phone Care Team Providers Care Fish Hatchery Manager Name Role Phone Unavailable Primary Care Provider Unavailabl e Allergies No known active allergies Medications HYDROcodone-acet aminophen (NORCO) 5-325 mg tablet Take 1 Tab by mouth every 4 hours as needed for Pain, Moderate. 30 Tab 0 02/02/2014 Active Family History Medical History Relation Name Comments Healthy Father Healthy Mother Relation Name Status Comments Father Alive Mother Alive Social History Tobacco Use Types Packs/Day Years Used Date Smoking Tobacco: Every Day Cigarettes Alcohol Use Standard Drinks/Week Comments No 0 (1 standard drink = 0.6 oz pur e alcohol) Sex and Gender Information Value Date Recorded Sex Assigned at Not on file Legal Sex Male 3:53 PM CDT Gender Identity Not on file Sexual Orientation Not on file Last Filed Vital Signs Vital Sign Reading Time Taken Comments Blood Pressure 127/73 02/02/2014 6:18 PM CDT Pulse 97 02/02/2014 6:18 PM CDT Temperature 38.9 C (102.1 F) 02/02/2014 4:11 PM CDT Respiratory Rate 18 02/02/2014 6:18 PM CDT Oxygen Saturation 95% 02/02/2014 6:18 PM CDT Inhaled Oxygen Concentration - - Weight 97.5 kg (215 lb) 02/02/2014 4:11 PM CDT Height 180.3 cm (5' 11) 02/02/2014 4:11 PM CDT Body Mass Index 29.99 02/02/2014 4:11 PM CDT Plan of Treatment Health Maintenance Due Date Last Done Comments DTAP/TDAP/TD VACCINES (1 - Tdap) 2005 HEPATITIS B VACCINES (1 of 3 - 19+ 3-dose series) 10/25 INFLUENZA VACCINE (#1) 2025 HPV VACCINES (No Doses Required) Completed
[2025-11-16 08:47] VITALS: BP 146/87; PULSE 88; RESP 15; TEMP 36.6; O2SAT 100
== END 2025-11-16 11:24 | disposition left against medical advice (07) ==
PROVIDERS: PCP Clinical Nurse Specialist
DX: R06.02 Shortness of breath (principal)
CPT/HCPCS: 99199

== ENCOUNTER 2025-11-19 11:06 | Emergency (ER) | payer OTHER, SELFPAY ==
[2025-11-19 11:25] VITALS: BP 149/79; PULSE 102; RESP 16; TEMP 36.6; O2SAT 100
--- NOTE | 2025-11-19 12:16 | ED_ITS ---
HPI - Skin/Abscess/Foreign Bdy General Chief complaint: Skin/Abscess/Foreign Body Stated complaint: Boil inside L thigh Source: patient Mode of arrival: ambulatory Limitations: no limitations History of Present Illness HPI narrative: 39 y/o male with hx DM presented for c/o 'boil to left thigh' which started about 2 days ago. Endorses history of abscesses to groin and axilla, which he says happens when seasons change. Endorses significant pain to the site, denies drainage, n/v/d/f/c. Related Data Allergies Allergy/AdvReac Type Severity Reaction Status Date / Time No Known Allergies Allergy Verified 11/19/25 11:40 Review of Systems Review of Systems: per HPI [facility] Past Medical History Medical History Insomnia New onset type 2 diabetes mellitus Tobacco abuse Hyperlipidemia Erectile dysfunction Eczema Anxiety Epidermoid cyst of face Surgical History Surgical History H/O excision of epidermal inclusion cyst (03/2023) Left forehead, left anterior cheek, left posterior cheek History of surgical removal of pilonidal cyst (~2020) History of surgical removal of pilonidal cyst (~2014) 04/09/2023 - 3 removed Family History Family History Father Diabetes mellitus Hypertension Mother Hypertension Social History Social History Social History: The patient and his have been together for 10 years and they have been since 2019. They have do 3 children ages [id number] and 4 (as of documentation April 2024). 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 The patient denies any history of significant alcohol use. He does smoke up to half a pack of cigarettes per day but in recent months is cut down to 2 or 3 cigarettes a day. He started smoking in his late teens. He denies illicit substance use. Code status: Full code Surrogate decision maker: Kaylene Lane () Smoking packs per day: 0.5 Smoking cigarettes per day: 10.0 Years smoked: 18 Smoking pack-years: 9.00 Smoking status: Current every day smoker Tobacco type: cigarettes Alcohol intake: current Drinks per week: 3 Alcohol use details: Quit 02/2023 Substance use: never Substance use type: does not use Lack of Transportation: No Lack of Food: Never True Current Housing: I Have Housing Concerned About Future Housing: No Difficulty Paying Gas/Electric Bills: No Difficulty Paying for Meds: No Currently Unemployed: No Education: High School Diploma/GED Difficulty w/ Childcare or Family Care: No Living arrangements: with family Spiritual care concerns: No Comments At time of signature, I have reviewed and agree with nursing past medical, surgical, social and family history unless otherwise noted. Please see nursing chart for further information. There is no relevant family history pertinent to the presenting complaint Exam Narrative: GENERAL: Well-appearing EYES: conjunctivae clear, and EOMI. ENT: Mucous membranes moist. Oropharynx without edema, erythema or lesions. NECK: Supple. No lymphadenopathy CHEST: Clear to auscultation. HEART: Regular rate and rhythm. SKIN: Warm, dry. Abscess to left uper medial thigh approx 8cm diameter, extremely tender, firm center without fluctuance. NEURO: Alert and oriented x3. Course Course Level of Care: Express Care Visit Vital Signs Vital signs: Vital Signs Temperature 98 F 11/19/25 11:25 Pulse Rate 102 H 11/19/25 11:25 Respiratory Rate 16 11/19/25 11:25 Blood Pressure 149/79 H 11/19/25 11:25 Pulse Oximetry 100 11/19/25 11:25 Temperature 98 F 11/19/25 11:25 Pulse Rate 102 H 11/19/25 11:25 Respiratory Rate 16 11/19/25 11:25 Blood Pressure 149/79 H 11/19/25 11:25 Pulse Oximetry 100 11/19/25 11:25 [facility] Narrative Medical decision making narrative: Discussed physical exam findings; Abscess to the left upper medial thigh. No indication for I&D at this time, states he usually takes abx and it drains on it's own. Advised supportive measures and signs/symptoms to go to the ER. Pt is appropriate for outpt treatment and f/u. Differential Diagnosis Differential Diagnosis: abscess, viral exanthema, contact dermatitis, allergic dermatitis, eczema, urticaria, insect bites, impetigo, tinea, folliculitis Discharge Plan Discharge Clinical Impression: Abscess of skin or subcutaneous tissue Patient Disposition: Home Condition: Stable Instructions: Antibiotic Form, Abscess (ED) Additional Instructions: Cleanse area gently with warm soapy water Warm compresses at least 4 times a day to the site to help expel any additional drainage. Keep your wound covered while draining Take antibiotic as directed Tylenol and ibuprofen every 8 hours for pain as needed Follow up with your primary care physician in 3 days for a wound check. Go to the Emergency Department immediately if you develop any of the following symptoms: Fevers, Increased redness, pain, or swelling or any other concerns Patient Language: U[place] Prescriptions: New ibuprofen 800 mg tablet 800 mg PO TID PRN (Reason: pain) Qty: 15 0RF lidocaine HCl 3 % cream 1 applic topical TID PRN (Reason: pain) Qty: 28.3 0RF doxycycline hyclate 100 mg tablet 100 mg PO BID 10 Days Qty: 20 0RF No Action (DME) Dexcom G7 Sensor Device MISCELLANEOUS Qty: 9 2RF Rx Instructions: As directed (DME) blood-glucose meter Misc See Rx Instructions .ROUTE .MEDSUPPLY Qty: 1 0RF Rx Instructions: To check glucose 4'x per day. (DME) lancets [OneTouch UltraSoft 2 Lancet] 30 gauge misc See Rx Instructions .Route Qty: 200 2RF Rx Instructions: As directed to check blood sugars 8 times a day Follow-up/Referrals: Flower Marie, JOB DEVELOPMENT SPECIALIST, CERTIFIED ALCOHOL DRUG COUNSELOR-C [Primary Care Provider, Internal Medicine] Time of Disposition: 12:27
== END 2025-11-19 12:30 | disposition home or self-care (01) ==
PROVIDERS: Emergency Provider Nurse Practitioner Family; PCP Clinical Nurse Specialist
DX: L02.416 Cutaneous abscess of left lower limb (principal); E11.9 Type 2 diabetes mellitus without complications; E78.5 Hyperlipidemia, unspecified
CPT/HCPCS: 99213; G0463